=== PATIENT | female | born 1965 | race Caucasian/White ===

== ENCOUNTER → 2016-11-12 | Outpatient (CLI) | payer OTHER ==
[~2016-11-12] MED LIST: ACLI1AER3 INH; AMLO-114 PO; BENA40TA6 PO; CLC100 PO; CLON1TAB3 PO; CMBIN INH; CRS20 PO; DULA1INJ PO; DULO60CA44 PO; EZET10TA63 PO; FLUT0.15 NAE; FURO-85 PO; GABA1CAP5 PO; GABA800T PO; GLIP-199 PO; INSDGI SC; IPRA1AER2 INH; LINA1CAP PO; LTN/10 PO; METO25TA56 PO; MONT1TAB3 PO; MORP1TAB12 PO; MORP30TA23 PO; NVLGI/PEN SQ; OXYC-164 PO; OXYC1TAB3 PO; PANT40TA PO; POTA-335 PO; PROAIR HFA 108 INH; ROSU20TA PO; SITA100T3 PO; SYMIN160 INH; TRAZ100T29 PO; WARF3TAB PO; WARF3TAB6 PO; WARF6TAB PO; ZLF/100 PO; ZNT/300 PO
--- NOTE | 2016-11-12 10:11 | DIAGNOSTIC IMAGING REPORT ---
DOUBLE CONTRAST BARIUM ESOPHAGRAM CLINICAL HISTORY: Dysphagia. History of tracheostomy. COMPARISON STUDY: No priors. TECHNIQUE: A standard air contrast barium esophagram is performed. Multiple spot images of the esophagus are acquired both upright and prone. FINDINGS: The patient swallowed barium and the barium pill without difficulty. The mucosal pattern is normal. There is no evidence of intrinsic or extrinsic mass lesion. Trace silent aspiration was observed. The gastroesophageal junction distended normally. There is mild to moderate dysmotility in the mid to distal third of the esophagus. No gastroesophageal reflux could be elicited by having the patient perform the Valsalva maneuver. Fluoroscopy time: 1.3 minutes. Fluoroscopic images: 23 IMPRESSION: 1. Trace silent aspiration was observed during the examination. 2. Esophageal dysmotility. Electronically signed by: En Yoder M.D. 11/12/2016 10:09 AM Dictated Date/Time: 11/12/2016 10:01 AM
== END | disposition home or self-care (01) ==
LOC: C.RAD 08:53
PROVIDERS: ATTEND Family Medicine
DX: R13.10 Dysphagia, unspecified (principal)

== ENCOUNTER → 2016-11-26 | Outpatient (CLI) | payer OTHER ==
--- NOTE | 2016-11-26 12:12 | DIAGNOSTIC IMAGING REPORT ---
VIDEO SWALLOW HISTORY: R13.10 [id number] TECHNIQUE: Video fluoroscopic evaluation of swallowing was performed in the AP and lateral projections by the speech pathology staff. The patient is fed nectar-thick and thin liquid barium, a barium coated wafer, and barium pudding. FLUOROSCOPY TIME: Fluoroscopy time 1.9 minutes. A cine loop was submitted. COMPARISON STUDY: Barium swallow 11/12/2016. FINDINGS: There is normal hyoid excursion and epiglottic deflection. Multiple episodes of penetration. However, no aspiration identified during the examination. The penetration was improved with chin tuck maneuvers. IMPRESSION: 1. Multiple episodes of penetration without aspiration. This was improved by chin tuck maneuvers. 2. Please see the speech pathologist report for detailed findings and recommendations. Electronically signed by: Cesar Clement M.D. 11/26/2016 12:10 PM Dictated Date/Time: 11/26/2016 12:07 PM
--- NOTE | 2016-11-26 12:51 | SWALLOWING EVALUATION ---
HISTORY: This 51 year-old woman, from home, was referred for a VFSS at [facility] secondary to complaints of feeling that something is stuck in her throat as well as reporting coughing with meals epically with thins and mixed consistencies. Currently the patient's diet level is regular with thins. She completed Barium Swallow on 11/12/16 which indicated severe esophageal dysmotility as well as trace aspiration. PROCEDURE: The patient was seen in the Radiology Department of [facility] for the VFSS. Cursory examination of the oral cavity revealed no dentition and pt. reports that she rarely wears her upper dentures. Movement of the articulators was WNL. The patient was seated in a wheel chair and was viewed in both the Anterior-Posterior (A-P) and Lateral planes. Volitional phonation exercises completed in the A-P plane revealed bilateral vocal fold movement and vocal intensity within functional limits. In the lateral plane, the patient was given the following barium-infused boluses: 1 tsp thin barium with oral hold 1x, 1 tsp thin barium with oral hold and chin tuck 1x, self presented single cup swallow-thin barium 1x, self presented single cup swallow -thin liquid barium with chin tuck 1x, self presented serial cup swallow 1x. 1 tsp nectar thick barium with oral hold 1x, self presented single cup swallow- nectar thick barium 1x, self presented serial cup swallows 1x. 1 tsp barium pudding-self presented 1x. Cracker with barium paste 1x. Pt. was turned to be viewed in the A-P view for the esophgeal scan however no food was presented as previously presented food was remaining throughout the esophagus displaying significant dysmotitliy. RESULTS: Oral Phase: Pt. had no labial escape of any food or liquid items presented. Pt. demonstrated a cohesive bolus between tongue and palatal seal. Timely and efficient chewing and mashing was observed with all consistencies as well as brisk tongue motion and complete oral clearance. Initiation of pharyngeal swallow began with bolus head at posterior angle of hyoid excursion. Overall WFL for oral phase of swallow. *Did note small amount of premature spillage to the level of the valleculae inconsistently throughout the study. Pharyngeal Phase: Soft Palate Elevation was complete for all boluses. Laryngeal elevation was reduced demonstrating decreased movement of thyroid cartilage. Complete approximation of arytenoids to epiglottic base. Incomplete Anterior Hyoid excursion was observed. Complete epiglottic inversion was witnessed. Laryngeal Vestibular closure was incomplete and a thin column of barium noted in laryngeal vestibule. Tongue base retraction was noted with all consistencies and tongue base made effective contact with posterior pharyngeal wall throughout study. Mild pharyngeal residue was observed resulting in nearly complete pharyngeal clearance of all tested items. *Results of thin liquids and nectar thick liquids did not vary. *Pt. demonstrated mild penetration of thins and nectars with cup drinks. Not witnessed with sequential swallows however highly likely. Pt. was instructed to complete chin tuck with 2 second oral hold which resulted in increased airway protection and no penetration. No aspiration was observed during this study however highly likely to occur throughout the course of a meal if pt. does not follow safe swallow strategies, aspiration precautions, and GERD precautions. Esophageal Phase: Opening and closing of the UES was timely and efficient. CADDIE SUPERVISOR noted significant esophageal dysmotility. SUMMARY/RECOMMENDATIONS: Overall pt. presented with mild pharyngeal dysphagia and significant esophageal dysmotility. Recommendin. Regular "slippery" diet (no mixed consistencies) with thin liquids AND CHIN TUCK-NO STRAWS 2. Aspiration precautions 3. GERD precautions (upright for all meals +20 min after as well as no eating 20 min before laying down) 4. GI consult- Pt. has already completed Barium Swallow Radiologist IMPRESSION: 1. Multiple episodes of penetration without aspiration. This was improved by chin tuck maneuvers. 2. Please see the speech pathologist report for detailed findings and recommendations. All results and recommendations were discussed with the pt. and her daughter at length as well as written material provided. Thank you for referral of this patient. Please contact me at if any additional information is needed.
== END | disposition home or self-care (01) ==
LOC: C.RAD 11:11
PROVIDERS: ATTEND Family Medicine
DX: R13.13 Dysphagia, pharyngeal phase (principal); K22.4 Dyskinesia of esophagus

== ENCOUNTER 2016-12-03 18:01 | Emergency (ER) | payer OTHER ==
[~2016-12-03] VITALS: Ht 154.9 cm; Wt 91.0 kg
[~2016-12-03 18:01] MED LIST changes: -ACLI1AER3 INH; -BENA40TA6 PO; -DULA1INJ PO; -DULO60CA44 PO; -FLUT0.15 NAE; -GABA800T PO; -INSDGI SC; -LINA1CAP PO; -METO25TA56 PO; -MORP1TAB12 PO; -NVLGI/PEN SQ; -OXYC-164 PO; -PROAIR HFA 108 INH; -ROSU20TA PO; -TRAZ100T29 PO; -WARF3TAB PO; -WARF6TAB PO
[2016-12-03 18:10] VITALS: TEMP 36.9; Ht 154.9 cm; Wt 91.0 kg
[2016-12-03] MEDS ORDERED: SODIUM CHLORIDE 0.9% 1000ML 1,000 ML IV STA (19:54)
[2016-12-03] MEDS ORDERED: ONDANSETRON INJ 2 MG/ML 2 ML VIAL IV STA (19:54)
[2016-12-03] MEDS ORDERED: MoRPHine SULFATE 4 MG/ML 1 ML CARP\\VIAL IV STA (19:54)
[2016-12-03 20:06] LABS: BASO % 0.3 %; BASO ABS # 0.03 K/uL (0-0.2); COMPLETE YES; EOS % 1.1 %; HEMATOCRIT 47.4 % (37-47); IG% 0.1 %; LYMPH % 44.7 %; LYMPH ABS # 4.29 K/uL (1.2-3.4); MEAN CORPUSCULAR HEMOGLOBIN 29.6 pg (25-34); MEAN CORPUSCULAR HGB CONC 35.2 g/dl (32-36); MEAN PLATELET VOLUME 11.2 fL (7.4-10.4); MONO % 4.4 %; NEUT % 49.4 %; PLATELET COUNT 154 K/uL (130-400); RED BLOOD COUNT 5.64 M/uL (4.2-5.4)
[2016-12-03 20:28] LABS: ALT/SGPT 32 U/L (12-78); BLOOD UREA NITROGEN 14 mg/dl (7-18); BUN/CREATININE RATIO 18.7 (10-20); CALCIUM 8.6 mg/dl (8.5-10.1); CARBON DIOXIDE 23 mmol/L (21-32); CHLORIDE 107 mmol/L (98-107); CREATININE 0.75 mg/dl (0.60-1.20); GLUCOSE 153 mg/dl (70-99); POTASSIUM 3.9 mmol/L (3.5-5.1); SODIUM 140 mmol/L (136-145)
[2016-12-03 20:31] LABS: ALKALINE PHOSPHATASE 79 U/L (45-117); AST/SGOT 22 U/L (15-37)
[2016-12-03] MEDS ORDERED: OPTIRAY 320 IV PRN (20:45)
--- NOTE | 2016-12-03 21:02 | DIAGNOSTIC IMAGING REPORT ---
CT ABD/PELVIS IV CONTRAST ONLY CLINICAL HISTORY: Lower abdominal pain SUSPECTED DIVERTICULITIS COMPARISON STUDY: None. TECHNIQUE: Following the IV administration of 90 mL of Optiray-320, CT scan of the abdomen and pelvis was performed from the lung bases to the proximal femurs. Images are reviewed in the axial, sagittal, and coronal planes. IV contrast was administered without complication. CT DOSE: 1155.41 mGy.cm FINDINGS: Lower chest: There is mild interstitial prominence. There is subtle tree-in-bud opacities, likely postinflammatory. Liver: There is mild hepatic steatosis. The liver is mildly enlarged. Gallbladder: Unremarkable. Spleen: The spleen is mildly enlarged measuring 12 cm. No masses are visualized. Pancreas: Unremarkable. Adrenal glands: Unremarkable. Kidneys: There is symmetric renal cortical enhancement. The kidneys are normal in size without hydronephrosis. Bowel: There are no transition zones to indicate bowel obstruction. The appendix appears normal. There is no evidence of acute diverticulitis. Peritoneum: There is no free fluid. There is no free air. There are multiple fat-containing anterior abdominal wall hernias. Vasculature: The patient appears be status post aortoiliac grafting. There is no evidence of abdominal aortic aneurysm. Adenopathy: None. Pelvic viscera: The uterus appears surgically absent. Skeletal structures: No destructive osseous lesions are seen. IMPRESSION: 1. No evidence of bowel obstruction. No evidence of free air 2. Normal appendix 3. No evidence of acute diverticulitis 4. Hepatic steatosis. Mild hepatosplenomegaly 5. Multiple fat-containing ventral hernias Electronically signed by: Neal Quigley M.D. 12/03/2016 9:00 PM Dictated Date/Time: 12/03/2016 8:54 PM
[2016-12-03] MEDS ORDERED: DULO60CA44 PO (21:26)
[2016-12-03] MEDS ORDERED: ROSU20TA PO (21:26)
[2016-12-03] MEDS ORDERED: FLUT0.15 NAE (21:26)
[2016-12-03 21:28] VITALS: BP 108/39; PULSE 99; O2SAT 95
[2016-12-03] MEDS ORDERED: EZET10TA63 PO (21:39)
[2016-12-03] MEDS ORDERED: WARF3TAB PO (21:39)
[2016-12-03] MEDS ORDERED: METO25TA56 PO (21:39)
[2016-12-03] MEDS ORDERED: NVLGI/PEN SQ (21:39)
[2016-12-03] MEDS ORDERED: PROAIR HFA 108 INH (21:39)
[2016-12-03] MEDS ORDERED: WARF6TAB PO (21:39)
[2016-12-03] MEDS ORDERED: INSDGI SC (21:39)
[2016-12-03] MEDS ORDERED: DULA1INJ PO (21:39)
[2016-12-03] MEDS ORDERED: TRAZ100T29 PO (21:39)
[2016-12-03] MEDS ORDERED: LINA1CAP PO (21:39)
[2016-12-03] MEDS ORDERED: ACLI1AER3 INH (21:39)
--- NOTE | 2016-12-03 22:40 | EMERGENCY ROOM VISIT NOTE ---
History Report prepared by Janelle: Johanna Watson Under the Supervision of: Dr. Salvador Cat M.D. First contact with patient: 19:45 Chief Complaint: DIARRHEA Stated Complaint: PAIN GOING FROM ABD TO BACK,DIARRHEA Nursing Triage Summary: L upper abd pain that radiates around to her back for 3 wks, c/o diarrhea for 4 days History of Present Illness The patient is a 51 year old female who presents to the Emergency Room with complaints of persistent left sided abdominal pain that began 3 weeks ago. Her pain radiates to the left side of her back. She describes it as an ache. She also complains of diarrhea which began 3 days ago. She describes it as watery and loose. She has an episode of diarrhea every time she tries to eat something. Today, the patient called her PCP's office and was referred to the emergency room. Denies fevers, vomiting, blood in her stool, urinary symptoms, or other complaints. She does not have history of abdominal issues. Denies recent antibiotic use or recent foreign travel. Source of History: patient Onset: 3 weeks ago Position: abdomen (left side) Quality: ache Timing: other (persistent) Associated Symptoms: + diarrhea, No fevers, No urinary symptoms, No vomiting Review of Systems See HPI for pertinent positives & negatives. A total of 10 systems reviewed and were otherwise negative. Past Medical & Surgical Medical Problems: (1) Emphysema of lung (2) Hypertension Surgical Problems: (1) Hx of BKA Family History No pertinent family history stated. Social History Smoking Status: Former Smoker Alcohol Use: none Drug Use: none Marital Status: single Occupation Status: disabled Current/Historical Medications Scheduled Aclidinium [place] (Tudorza Pressair), 1 PUFF INH BID Amlodipine (Norvasc), 10 MG PO DAILY Benazepril Hcl (Benazepril), 40 MG PO DAILY Budesonide/Formoterol Fumarate (Symbicort 160/4.5 Inhaler ), 2 PUFFS INH BID Dulaglutide (Trulicity), 0.75 MG PO WK Duloxetine Hcl (Cymbalta), 60 MG PO DAILY Ezetimibe (Zetia), 10 MG PO DAILY Furosemide (Lasix), 20 MG PO 2XWK Gabapentin (Neurontin), 800 MG PO BID Insulin Aspart (Novolog Flexpen), SQ UD Insulin Glargine (Lantus), 40 SC AMPM Linaclotide (Linzess), 145 MG PO DAILY Metoprolol Tartrate (Lopressor) (Lopressor), 25 MG PO BID Montelukast Sodium (Singulair), 10 MG PO DAILY Morphine Sulfate (Ms Contin), 30 MG PO Q12 Pantoprazole (Protonix), 40 MG PO DAILY Ranitidine HCl (Ranitidine HCl), 300 MG PO HS Rosuvastatin Calcium (Crestor), 20 MG PO DAILY Trazodone Hcl (Trazodone), 100 MG PO HS Warfarin Sodium (Coumadin), 3 MG PO 6XWK Warfarin Sodium (Coumadin), 6 MG PO WK Scheduled PRN Clonazepam (Klonopin), 1.5 MG PO TID PRN for Anxiety Fluticasone Propionate (Nasal) (Flonase Allergy Relief), 1-2 SPRAYS EVELYNE HS PRN for Nasal Congestion Ipratropium-Albuterol (Combivent Respimat), 1 PUFFS INH Q6H PRN for SOB/Wheezing Oxycodone Ir (Roxicodone Ir), 10 MG PO every 6 hours PRN for SEVERE PAIN [Proair Hfa 108], 1-2 PUFFS INH Q4 PRN for SOB/Wheezing Allergies Coded Allergies: Bupropion (Verified Allergy, Intermediate, hives, 05/11/15) Adhesives (Verified Allergy, Mild, "all tapes except paper" -- skin irritation, 12/03/16) Penicillins (Verified Allergy, Unknown, UNKNOWN, 05/11/15) Physical Exam Vital Signs Date Time Temp Pulse Resp B/P Pulse Ox O2 Delivery O2 Flow Rate FiO2 12/03/16 21:28 99 18 108/39 95 Room Air 12/03/16 20:12 101 16 143/58 95 Room Air 12/03/16 18:10 36.9 101 18 148/78 93 Room Air Physical Exam Constitutional: Vital signs reviewed. Eyes: Pupils are equal round reactive to light. Conjunctiva are noninjected. ENT: Pharynx is clear without erythema or exudate. Mucous membranes are moist. Neck supple without meningeal signs. Respiratory: Clear to auscultation bilaterally. Breath sounds are equal bilaterally. Cardiovascular: Regular rate and rhythm. No rubs or gallops. GI: Soft, nondistended, left abdominal tenderness, no guarding. Bowel sounds are present. Musculoskeletal: Bilateral BKA. No CVA tenderness. Integumentary: No cyanosis. Neurological: The patient is awake and alert. No focal deficits. Psychiatric: Normal affect. Medical Decision & Procedures ER Provider Diagnostic Interpretation: CT results as stated below per my review and radiologist interpretation. CT ABD/PELVIS IV CONTRAST ONLY CLINICAL HISTORY: Lower abdominal pain SUSPECTED DIVERTICULITIS COMPARISON STUDY: None. TECHNIQUE: Following the IV administration of 90 mL of Optiray-320, CT scan of the abdomen and pelvis was performed from the lung bases to the proximal femurs. Images are reviewed in the axial, sagittal, and coronal planes. IV contrast was administered without complication. CT DOSE: 1155.41 mGy.cm FINDINGS: Lower chest: There is mild interstitial prominence. There is subtle tree-in-bud opacities, likely postinflammatory. Liver: There is mild hepatic steatosis. The liver is mildly enlarged. Gallbladder: Unremarkable. Spleen: The spleen is mildly enlarged measuring 12 cm. No masses are visualized. Pancreas: Unremarkable. Adrenal glands: Unremarkable. Kidneys: There is symmetric renal cortical enhancement. The kidneys are normal in size without hydronephrosis. Bowel: There are no transition zones to indicate bowel obstruction. The appendix appears normal. There is no evidence of acute diverticulitis. Peritoneum: There is no free fluid. There is no free air. There are multiple fat-containing anterior abdominal wall hernias. Vasculature: The patient appears be status post aortoiliac grafting. There is no evidence of abdominal aortic aneurysm. Adenopathy: None. Pelvic viscera: The uterus appears surgically absent. Skeletal structures: No destructive osseous lesions are seen. IMPRESSION: 1. No evidence of bowel obstruction. No evidence of free air 2. Normal appendix 3. No evidence of acute diverticulitis 4. Hepatic steatosis. Mild hepatosplenomegaly 5. Multiple fat-containing ventral hernias Electronically signed by: Neal Quigley M.D. 12/03/2016 9:00 PM Dictated Date/Time: 12/03/2016 8:54 PM Laboratory Results 12/03/16 19:55 Red Blood Count 5.64, Mean Corpuscular Volume 84.0, Mean Corpuscular Hemoglobin 29.6, Mean Corpuscular Hemoglobin Concent 35.2, Mean Platelet Volume 11.2, Neutrophils (%) (Auto) 49.4, Lymphocytes (%) (Auto) 44.7, Monocytes (%) (Auto) 4.4, Eosinophils (%) (Auto) 1.1, Basophils (%) (Auto) 0.3, Neutrophils # (Auto) 4.74, Lymphocytes # (Auto) 4.29, Monocytes # (Auto) 0.42, Eosinophils # (Auto) 0.11, Basophils # (Auto) 0.03 12/03/16 19:55 Test 12/03/16 19:55 White Blood Count 9.60 K/uL (4.8-10.8) Red Blood Count 5.64 M/uL (4.2-5.4) Hemoglobin 16.7 g/dL (12.0-16.0) Hematocrit 47.4 % (37-47) Mean Corpuscular Volume 84.0 fL (80-100) Mean Corpuscular Hemoglobin 29.6 pg (25-34) Mean Corpuscular Hemoglobin Concent 35.2 g/dl (32-36) Platelet Count 154 K/uL (130-400) Mean Platelet Volume 11.2 fL (7.4-10.4) Neutrophils (%) (Auto) 49.4 % Lymphocytes (%) (Auto) 44.7 % Monocytes (%) (Auto) 4.4 % Eosinophils (%) (Auto) 1.1 % Basophils (%) (Auto) 0.3 % Neutrophils # (Auto) 4.74 K/uL (1.4-6.5) Lymphocytes # (Auto) 4.29 K/uL (1.2-3.4) Monocytes # (Auto) 0.42 K/uL (0.11-0.59) Eosinophils # (Auto) 0.11 K/uL (0-0.5) Basophils # (Auto) 0.03 K/uL (0-0.2) RDW Standard Deviation 42.1 fL (36.4-46.3) RDW Coefficient of Variation 13.8 % (11.5-14.5) Immature Granulocyte % (Auto) 0.1 % Immature Granulocyte # (Auto) 0.01 K/uL (0.00-0.02) Anion Gap 10.0 mmol/L (3-11) Est Creatinine Clear Calc Drug Dose 92.2 ml/min Estimated GFR () 107.7 Estimated GFR (Non- 92.9 BUN/Creatinine Ratio 18.7 (10-20) Calcium Level 8.6 mg/dl (8.5-10.1) Total Bilirubin 0.3 mg/dl (0.2-1) Direct Bilirubin < 0.1 mg/dl (0-0.2) Aspartate Amino Transf (AST/SGOT) 22 U/L (15-37) Alanine Aminotransferase (ALT/SGPT) 32 U/L (12-78) Alkaline Phosphatase 79 U/L (45-117) Total Protein 7.9 gm/dl (6.4-8.2) Albumin 3.5 gm/dl (3.4-5.0) Lipase 125 U/L (73-393) Laboratory results as reviewed by me. Medications Administered Medications (Trade) Dose Ordered Sig/Casandra Route Start Time Stop Time Status Last Admin Dose Admin Sodium Chloride (Nss 1000ml) 1,000 ml @ 999 mls/hr Q1H1M STAT IV 12/03/16 19:54 12/03/16 20:54 DC 12/03/16 20:00 999 MLS/HR Ondansetron HCl (Zofran Inj) 4 mg NOW STAT IV 12/03/16 19:54 12/03/16 19:56 DC 12/03/16 20:04 4 MG Morphine Sulfate (MoRPHine SULFATE INJ) 4 mg NOW STAT IV 12/03/16 19:54 12/03/16 19:56 DC 12/03/16 20:05 4 MG ED Course 1947: The patient was evaluated in room A10. A complete history and physical exam was performed. 1953: Ordered Morphine Sulfate 4 mg IV, Zofran Inj 4 mg IV, NSS 1000 ml @ 999 mls/hr IV. 2116: I reassessed the patient and talked to her about test results. She said that she was feeling better. She will follow up with her doctor and GI. The patient will be discharged home. Medical Decision This is a 51-year-old female who presents with abdominal pain and diarrhea. Differential diagnosis includes diverticulitis, abscess, perforation, colitis, kidney stone, irritable bowel syndrome, enteritis. I did perform a limited focused review of portions of the patient's old chart on the electronic medical record. The patient has had no recent pertinent visits to this hospital. I did evaluate the patient as noted above. IV access was established. I did treat patient with normal saline IV. She was also given morphine and Zofran IV. I did order and review the patient's blood work as noted in the electronic medical record. Her white blood cell count is not elevated. I did order a CT of the abdomen and pelvis. I did review the images myself as well as the radiology report as described above. There is no evidence of acute findings on CT scanning. I did reassess the patient. She is feeling better. I did discuss the test results with her. At this time the cause of her abdominal pain is unclear and she will follow up with her doctor and GI doctor for further evaluation. The patient was discharged in good condition. Impression Primary Impression: Left sided abdominal pain Additional Impression: Diarrhea Scribe Attestation The scribe's documentation has been prepared under my direct and personally reviewed by me in its entirety. I confirm that the note above accurately reflects all work, treatment, procedures, and medical decision making performed by me. Departure Information Dispostion Home / Self-Care Referrals Justa Rosen DO (PCP) Patient Instructions ED Abd Pain Unkn Cause Fem, My [facility] Additional Instructions You have been examined and treated today on an emergency basis only. This is not a substitute for, or an effort to provide, complete comprehensive medical care. It is impossible to recognize and treat all injuries or illnesses in a single emergency department visit. It is therefore important that you follow up closely with your physician and GI doctor. Call as soon as possible for an appointment. Return for worsening symptoms or if you develop fever, vomiting, rectal bleeding or any other concerning symptoms. Problem Qualifiers Additional Impression: Diarrhea Diarrhea type: unspecified type Qualified Codes: R19.7 - Diarrhea, unspecified
[2017-01-17] MEDS ORDERED: MORP1TAB12 PO (11:54)
[2017-01-17] MEDS ORDERED: BENA40TA6 PO (11:54)
[2017-01-17] MEDS ORDERED: GABA800T PO (11:54)
[2017-01-17] MEDS ORDERED: OXYC-164 PO (11:54)
== END 2016-12-03 21:31 | disposition home or self-care (01) ==
LOC: C.EDB 18:02 → C.EDA 21:31
DX: R10.30 Lower abdominal pain, unspecified (principal); R19.7 Diarrhea, unspecified; K76.0 Fatty (change of) liver, not elsewhere classified; I10 Essential (primary) hypertension; Z87.891 Personal history of nicotine dependence; Z79.01 Long term (current) use of anticoagulants

== ENCOUNTER → 2017-01-22 | Day surgery (SDC) | payer OTHER ==
[2017-01-17 11:57] VITALS: Ht 154.9 cm; Wt 94.5 kg
[~2017-01-22] VITALS: Ht 154.9 cm; Wt 94.5 kg
[~2017-01-22] MED LIST changes: +ACLI1AER3 INH; +BENA40TA6 PO; -CLC100 PO; -CMBIN INH; -CRS20 PO; +DULA1INJ PO; +DULO60CA44 PO; +FLUT0.15 NAE; -GABA1CAP5 PO; +GABA800T PO; -GLIP-199 PO; +INSDGI SC; +INSULIN HUMAN REGULAR PER UNIT 6 UNITS in SYRINGE 5.94 ML IV ONE; +LIDOCAINE HCL 2% 2 ML VIAL (20MG/ML) ONE; +LINA1CAP PO; -LTN/10 PO; +METO25TA56 PO; +MIDAZOLAM HCL 1 MG/ML 2ML VIAL ONE; +MORP1TAB12 PO; -MORP30TA23 PO; +NVLGI/PEN SQ; +ONDANSETRON INJ 2 MG/ML 2 ML VIAL ONE; +OXYC-164 PO; -OXYC1TAB3 PO; -POTA-335 PO; +PROAIR HFA 108 INH; +PROPOFOL IV EMULSION 10 MG/ML 20 ML VIAL IV ONE; +ROSU20TA PO; -SITA100T3 PO; -SYMIN160 INH; +TRAZ100T29 PO; +WARF3TAB PO; -WARF3TAB6 PO; -ZLF/100 PO
--- NOTE | 2017-01-22 11:56 | Endo History and Physical ---
History & Physical Date of Service: Jan 22, 2017. 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 Past Surgical History Hx Cardiac Surgery: No Hx Internal Defibrillator: No Hx Pacemaker: No Hx Abdominal Surgery: Yes (PARTIAL HYSTER, X2) Hx of Implantable Prosthesis: No Hx Post-Op Nausea and Vomiting: No Hx Cancer Surgery: No Hx Thoracic Surgery: No Hx Orthopedic: Yes (BLT BKA S/P TRAUMA, RT WRIST SURGERY) Hx Urinary Tract Surgery: No Family History None Social History Smoking Status: Former Smoker Hx Substance Use: No Hx Alcohol Use: No Allergies Coded Allergies: Bupropion (Verified Allergy, Intermediate, hives, 01/17/17) Adhesives (Verified Allergy, Mild, "all tapes except paper" -- skin irritation, 01/17/17) Penicillins (Verified Allergy, Unknown, HIVES, 01/17/17) Current Medications Reported Home Medications Medications Dose Route/Sig Max Daily Dose Days Date Category Dose Instructions Oxycodone Hcl 10 Mg Tab 1 Tab PO QID 01/17/17 Reported Morphine Sulfate Er (Morphine Sulfate) 30 Mg Tab 1 Tab PO BID 01/17/17 Reported Neurontin (Gabapentin) 800 Mg Tab 800 Mg PO TID 01/17/17 Reported Lotensin (Benazepril Hcl) 40 Mg Tab 40 Mg PO QPM 01/17/17 Reported Zetia (Ezetimibe) 10 Mg Tab 10 Mg PO QPM 12/03/16 Reported Coumadin (Warfarin Sodium) 3 Mg Tab 3 Mg PO QPM 12/03/16 Reported Tudorza Pressair (Aclidinium [place]) 400 Mcg/Act Aer 1 Puff INH BID 12/03/16 Reported Trulicity (Dulaglutide) 0.75 Mg/0.5 Ml Inj 0.75 Mg PO WK 12/03/16 Reported Trazodone (Trazodone HCl) 100 Mg Tab 100 Mg PO HS 12/03/16 Reported [Proair Hfa 108] 1-2 Puffs INH Q4 PRN 12/03/16 Reported Novolog Flexpen (Insulin Aspart) 100 Units/Ml Inj SQ UD 12/03/16 Reported PER SLIDING SCALE Lopressor (Metoprolol Tartrate) 25 Mg Tab 25 Mg PO BID 12/03/16 Reported Linzess (Linaclotide) 145 Mcg Cap 145 Mg PO QPM 12/03/16 Reported TAKE > 30 minutes prior to meals. Lantus (Insulin Glargine) 100 Unit/Ml Inj 50 SC AMPM 12/03/16 Reported Flonase Allergy Relief (Fluticasone Propionate (Nasal)) 50 Mcg/Act Spr 1-2 Sprays EVELYNE HS PRN 12/03/16 Reported Cymbalta (Duloxetine Hcl) 60 Mg Cap 60 Mg PO QPM 12/03/16 Reported Crestor (Rosuvastatin Calcium) 20 Mg Tab 20 Mg PO QPM 12/03/16 Reported Lasix (Furosemide) 20 Mg Tab 20 Mg PO 2XWK 05/05/15 Reported TAKE ON SAT & WED Norvasc (Amlodipine Besylate) 10 Mg Tab 10 Mg PO QPM 05/05/15 Reported Ranitidine HCl 300 Mg Tab 300 Mg PO HS 05/05/15 Reported Protonix (Pantoprazole Sodium) 40 Mg Tab 40 Mg PO QPM 05/05/15 Reported Combivent Respimat (Ipratropium-Albuterol) 1 Aer Aer 1 Puffs INH Q6H PRN 05/05/15 Reported Klonopin (Clonazepam) 1 Mg Tab 1.5 Mg PO TID 05/05/15 Reported Singulair (Montelukast Sodium) 10 Mg Tab 10 Mg PO QPM 05/05/15 Reported Vital Signs Weight (Kilograms): 94.55 Height (Feet): 5 Height (Inches): 1 Date Time Temp Pulse Resp B/P Pulse Ox O2 Delivery O2 Flow Rate FiO2 01/22/17 11:31 37.4 89 20 148/67 93 Room Air Physical Exam General Appearance: WD/WN, no apparent distress Respiratory/Chest: Auscultation: breath sounds normal Cardiovascular: Heart Auscultation: RRR Abdomen: Bowel Sounds: normal Inspection & Palpation: soft, non-distended, no tenderness, guarding & rebound Assessment and Plan Assessment: 51 yo CF who presents for EGD secondary to dysphagia and abnormal barium swallow. Plan: Proceed with EGD.
--- NOTE | 2017-01-22 12:36 | GI REPORT ---
Procedure Date: 01/22/2017 12:18 PM Procedure: Upper GI endoscopy Indications: Dysphagia, Abnormal UGI series Medicines: Monitored Anesthesia Care Complications: No immediate complications. Estimated Blood Loss: Estimated blood loss: none. Procedure: Pre-Anesthesia Assessment: - Prior to the procedure, a History and Physical was performed, and patient medications and allergies were reviewed. The patient's tolerance of previous anesthesia was also reviewed. The risks and benefits of the procedure and the sedation options and risks were discussed with the patient. All questions were answered, and informed consent was obtained. Prior Anticoagulants: The patient has taken Coumadin (warfarin), last dose was 2 days prior to procedure. ASA Grade Assessment: III - A patient with severe systemic disease. After reviewing the risks and benefits, the patient was deemed in satisfactory condition to undergo the procedure. After obtaining informed consent, the endoscope was passed under direct vision. Throughout the procedure, the patient's blood pressure, pulse, and oxygen saturations were monitored continuously. The scope was introduced through the mouth, and advanced to the second part of duodenum. The upper GI endoscopy was accomplished without difficulty. The patient tolerated the procedure well. Findings: The esophagus was normal. A medium amount of food (residue) was found in the entire examined stomach. The examined duodenum was normal. Impression: - Normal esophagus. - A medium amount of food (residue) in the stomach. - Normal examined duodenum. - No specimens collected. Recommendation: - Resume previous diet. - Continue present medications. - Recommend patient control blood glucose levels more strictly, as fluctuations, both acute and chronic can result in decreased GI motility. -Recommend Gastric emptying study - Return to primary care physician as previously scheduled. Miguelangel Johnson, 01/22/2017 12:35:43 PM This report has been signed electronically. Note Initiated On: 01/22/2017 12:18 PM I attest to the content of the Intraoperative Record and orders documented therein, exceptions below
--- NOTE | 2017-01-22 13:03 | Discharge Instructions ---
Endoscopy Patient Instructions Date / Procedure(s) Performed Jan 22, 2017. EGD Allergy Information Coded Allergies: Bupropion (Verified Allergy, Intermediate, hives, 01/17/17) Adhesives (Verified Allergy, Mild, "all tapes except paper" -- skin irritation, 01/17/17) Penicillins (Verified Allergy, Unknown, HIVES, 01/17/17) Discharge Date / Findings Jan 22, 2017. Retained gastric contents Medication Instructions Stopped Medication(s): Coumadin OK to resume all medications today as prescribed Reported Home Medications Medications Dose Route/Sig Max Daily Dose Days Date Category Dose Instructions Oxycodone Hcl 10 Mg Tab 1 Tab PO QID 01/17/17 Reported Morphine Sulfate Er (Morphine Sulfate) 30 Mg Tab 1 Tab PO BID 01/17/17 Reported Neurontin (Gabapentin) 800 Mg Tab 800 Mg PO TID 01/17/17 Reported Lotensin (Benazepril Hcl) 40 Mg Tab 40 Mg PO QPM 01/17/17 Reported Zetia (Ezetimibe) 10 Mg Tab 10 Mg PO QPM 12/03/16 Reported Coumadin (Warfarin Sodium) 3 Mg Tab 3 Mg PO QPM 12/03/16 Reported Tudorza Pressair (Aclidinium [place]) 400 Mcg/Act Aer 1 Puff INH BID 12/03/16 Reported Trulicity (Dulaglutide) 0.75 Mg/0.5 Ml Inj 0.75 Mg PO WK 12/03/16 Reported Trazodone (Trazodone HCl) 100 Mg Tab 100 Mg PO HS 12/03/16 Reported [Proair Hfa 108] 1-2 Puffs INH Q4 PRN 12/03/16 Reported Novolog Flexpen (Insulin Aspart) 100 Units/Ml Inj SQ UD 12/03/16 Reported PER SLIDING SCALE Lopressor (Metoprolol Tartrate) 25 Mg Tab 25 Mg PO BID 12/03/16 Reported Linzess (Linaclotide) 145 Mcg Cap 145 Mg PO QPM 12/03/16 Reported TAKE > 30 minutes prior to meals. Lantus (Insulin Glargine) 100 Unit/Ml Inj 50 SC AMPM 12/03/16 Reported Flonase Allergy Relief (Fluticasone Propionate (Nasal)) 50 Mcg/Act Spr 1-2 Sprays EVELYNE HS PRN 12/03/16 Reported Cymbalta (Duloxetine Hcl) 60 Mg Cap 60 Mg PO QPM 12/03/16 Reported Crestor (Rosuvastatin Calcium) 20 Mg Tab 20 Mg PO QPM 12/03/16 Reported Lasix (Furosemide) 20 Mg Tab 20 Mg PO 2XWK 05/05/15 Reported TAKE ON SAT & WED Norvasc (Amlodipine Besylate) 10 Mg Tab 10 Mg PO QPM 05/05/15 Reported Ranitidine HCl 300 Mg Tab 300 Mg PO HS 05/05/15 Reported Protonix (Pantoprazole Sodium) 40 Mg Tab 40 Mg PO QPM 05/05/15 Reported Combivent Respimat (Ipratropium-Albuterol) 1 Aer Aer 1 Puffs INH Q6H PRN 05/05/15 Reported Klonopin (Clonazepam) 1 Mg Tab 1.5 Mg PO TID 05/05/15 Reported Singulair (Montelukast Sodium) 10 Mg Tab 10 Mg PO QPM 05/05/15 Reported Provider Instructions Activity Restrictions - No exercising or heavy lifting for 24 hours. - Do not drink alcohol the day of the procedure. - Do not drive a car or operate machinery until the day after the procedure. - Do not make any important decisions or sign important papers in 24 hours after the procedure. Following Day: - Return to full activity which may include returning to work/school. Diet Start your diet with liquids and light foods (jello, soup, juice, toast). Then eat your usual diet if not nauseated. Treatment For Common After Affects For mild abdominal pain, bloating, or excessive gas: - Rest - Eat lightly - Lie on right side Schedule Gastric emptying study for further evaluation. Follow-Up Information Follow-up with Justa Rosen as scheduled Anesthesia Information What You Should Know You have had a procedure that required some medicine to reduce anxiety and discomfort. This treatment is called moderate sedation. After receiving the treatment, you may be sleepy, but you will be able to breathe on your own. The effects of the treatment may last for several hours. Follow these instructions along with Activity/Diet recommendations noted above: * Do NOT do anything where dizziness or clumsiness would be dangerous. * Rest quietly at home today, then you can be up and about tomorrow. * Have a responsible person stay with you the rest of today. * You may have had an I.V. today. If so, you may take the dressing off later today. Recommendations Call your doctor if: * Trouble breathing * Continuous vomiting for more than 24 hours * Temperature above 101 degrees * Severe abdominal pain or bloating * Pain not relieved by pain medicine ordered * There is increased drainage or redness from any incision * A large amount of rectal bleeding greater than 2-3 tablespoons. (If you had a polyp/s removed or have hemorrhoids, a small amount of blood - from the rectum is to be expected.) * You have any unanswered questions or concerns. IN THE EVENT OF A SERIOUS EMERGENCY, GO TO THE NEAREST EMERGENCY ROOM Your discharge instructions were prepared by provider Miguelangel Johnson. Patient Instructions Signature Page Briana Barajas Patient (or Guardian) Signature/Date: I have read and understand the instructions given to me by my caregivers. Caregiver/RN/Doctor Signature/Date: The above-named patient and/or guardian has received patient instructions on this date. + Original Patient Signature Page (only) stays with chart. Please make copy for patient.
[2017-01-22 13:29] VITALS: BP 142/86; PULSE 90; O2SAT 95
--- NOTE | 2017-01-22 14:37 | Anesthesiology Progress Note ---
Anesthesia Post Op Note Date & Time Jan 22, 2017 at 14:36 Vital Signs Pain Intensity: 0 Vital Signs Past 12 Hours Date Time Temp Pulse Resp B/P Pulse Ox O2 Delivery O2 Flow Rate FiO2 01/22/17 13:29 90 20 142/86 95 Room Air 01/22/17 12:55 87 20 158/88 95 Room Air 01/22/17 12:37 90 20 120/59 95 Room Air 01/22/17 11:31 37.4 89 20 148/67 93 Room Air Notes Mental Status: alert / awake / arousable, participated in evaluation Pt Amnestic to Procedure: Yes Nausea / Vomiting: adequately controlled Pain: adequately controlled Airway Patency, RR, SpO2: stable & adequate BP & HR: stable & adequate Hydration State: stable & adequate Anesthetic Complications: no major complications apparent
== END | disposition home or self-care (01) ==
LOC: C.GI 10:54
PROVIDERS: ATTEND Internal Medicine
DX: R13.10 Dysphagia, unspecified (principal); K21.9 Gastro-esophageal reflux disease without esophagitis; R94.8 Abnormal results of function studies of other organs and systems; Z90.711 Acquired absence of uterus with remaining cervical stump; Z96.653 Presence of artificial knee joint, bilateral; Z87.891 Personal history of nicotine dependence; Z88.8 Allergy status to other drugs, medicaments and biological substances; Z91.048 Other nonmedicinal substance allergy status; Z88.0 Allergy status to penicillin; J44.9 Chronic obstructive pulmonary disease, unspecified; I10 Essential (primary) hypertension; E78.5 Hyperlipidemia, unspecified; R56.9 Unspecified convulsions; Z86.73 Personal history of transient ischemic attack (TIA), and cerebral infarction without residual deficits; E11.9 Type 2 diabetes mellitus without complications; E66.9 Obesity, unspecified; F41.9 Anxiety disorder, unspecified

== ENCOUNTER → 2017-02-20 | Outpatient (CLI) | payer OTHER ==
[~2017-02-20] MED LIST changes: -INSULIN HUMAN REGULAR PER UNIT 6 UNITS in SYRINGE 5.94 ML IV ONE; -LIDOCAINE HCL 2% 2 ML VIAL (20MG/ML) ONE; -MIDAZOLAM HCL 1 MG/ML 2ML VIAL ONE; -ONDANSETRON INJ 2 MG/ML 2 ML VIAL ONE; -PROPOFOL IV EMULSION 10 MG/ML 20 ML VIAL IV ONE
--- NOTE | 2017-02-20 13:01 | DIAGNOSTIC IMAGING REPORT ---
NUCLEAR GASTRIC EMPTYING STUDY HISTORY: Reflux with esophagitis. COMPARISON: Barium swallow 11/12/2016. TECHNIQUE: Following the oral administration of 1.1 mCi of technetium 99m sulfur colloid in egg sandwich and 8 ounces of water, static abdominal images are obtained anteriorly and posteriorly at 0 minutes, 1 hour, 2 hour, and 4 hour time intervals. Gastric emptying was calculated utilizing the geometric mean method. FINDINGS: There is approximately 84% activity remaining at the 1 hour time interval (normal is less than 90%), 70% remaining at the 2 hour time interval (normal is less than 60%), and 50% activity remaining at the 4 hour time interval (normal is less than 10%). IMPRESSION: Delayed gastric emptying as described above. Electronically signed by: Cesar Clement M.D. 02/20/2017 12:58 PM Dictated Date/Time: 02/20/2017 12:57 PM
== END | disposition home or self-care (01) ==
LOC: C.NUCL 08:16
PROVIDERS: ATTEND Registered Nurse
DX: K30 Functional dyspepsia (principal); E11.9 Type 2 diabetes mellitus without complications; K21.9 Gastro-esophageal reflux disease without esophagitis; K31.89 Other diseases of stomach and duodenum

== ENCOUNTER → 2017-08-13 | Outpatient (CLI) | payer OTHER | END | disposition home or self-care (01) | LOC: C.LABSPEC 16:26 | PROVIDERS: ATTEND Family Medicine | DX: R19.7 Diarrhea, unspecified (principal) ==

== ENCOUNTER → 2017-11-21 | Outpatient (CLI) | payer OTHER ==
[2017-11-21 12:26] LABS: BASO % 0.7 %; BASO ABS # 0.06 K/uL (0-0.2); EOS % 1.3 %; EOS ABS # 0.11 K/uL (0-0.5); HEMATOCRIT 51.9 % (37-47); HEMOGLOBIN 18.3 g/dL (12.0-16.0); IG# 0.02 K/uL (0.00-0.02); LYMPH % 44.3 %; LYMPH ABS # 3.71 K/uL (1.2-3.4); MEAN CELL VOLUME 84.9 fL (80-100); MEAN CORPUSCULAR HGB CONC 35.3 g/dl (32-36); MEAN PLATELET VOLUME 11.3 fL (7.4-10.4); MONO % 3.7 %; MONO ABS # 0.31 K/uL (0.11-0.59); NEUT % 49.8 %; NEUT ABS # 4.17 K/uL (1.4-6.5); PLATELET COUNT 132 K/uL (130-400); RED CELL DISTRIBUTION WIDTH CV 13.8 % (11.5-14.5); RED CELL DISTRIBUTION WIDTH SD 42.4 fL (36.4-46.3); WHITE BLOOD COUNT 8.38 K/uL (4.8-10.8)
[2017-11-21 12:42] LABS: HEMOGLOBIN A1C 10.5 % (4.5-5.6)
[2017-11-21 18:37] LABS: ALBUMIN 3.7 gm/dl (3.4-5.0); ALT/SGPT 39 U/L (12-78); AST/SGOT 28 U/L (15-37); BLOOD UREA NITROGEN 8 mg/dl (7-18); CALCIUM 8.8 mg/dl (8.5-10.1); CARBON DIOXIDE 24 mmol/L (21-32); CHOLESTEROL 317 mg/dl (0-200); CREATININE 0.76 mg/dl (0.60-1.20); GLUCOSE 282 mg/dl (70-99); SODIUM 132 mmol/L (136-145)
[2017-11-21 18:38] LABS: FOLLICLE STIMULAT HORMONE 29.51 IU/L; LUTEINIZING HORMONE 15.43 IU/L
[2017-11-21 18:48] LABS: ALKALINE PHOSPHATASE 95 U/L (45-117); LDL CHOLESTEROL CALCULATED 214 mg/dl; LIPASE 539 U/L (73-393); TOTAL PROTEIN 8.2 gm/dl (6.4-8.2)
== END | disposition home or self-care (01) ==
LOC: C.LABPBG 11:02
PROVIDERS: ATTEND Family Medicine
DX: R10.9 Unspecified abdominal pain (principal); R11.2 Nausea with vomiting, unspecified; R61 Generalized hyperhidrosis; E11.9 Type 2 diabetes mellitus without complications

== ENCOUNTER → 2017-12-24 | Outpatient (CLI) | payer OTHER ==
[2017-12-24 12:19] LABS: BASO % 0.2 %; BASO ABS # 0.03 K/uL (0-0.2); EOS % 0.5 %; EOS ABS # 0.06 K/uL (0-0.5); HEMATOCRIT 49.7 % (37-47); HEMOGLOBIN 17.7 g/dL (12.0-16.0); IG# 0.03 K/uL (0.00-0.02); LYMPH % 37.1 %; LYMPH ABS # 4.48 K/uL (1.2-3.4); MEAN CELL VOLUME 82.8 fL (80-100); MEAN CORPUSCULAR HEMOGLOBIN 29.5 pg (25-34); MEAN CORPUSCULAR HGB CONC 35.6 g/dl (32-36); MEAN PLATELET VOLUME 10.7 fL (7.4-10.4); MONO % 3.6 %; MONO ABS # 0.44 K/uL (0.11-0.59); NEUT % 58.4 %; NEUT ABS # 7.05 K/uL (1.4-6.5); PLATELET COUNT 158 K/uL (130-400); RED CELL DISTRIBUTION WIDTH SD 41.8 fL (36.4-46.3); WHITE BLOOD COUNT 12.09 K/uL (4.8-10.8)
[2017-12-24 17:52] LABS: ALBUMIN 3.8 gm/dl (3.4-5.0); ALT/SGPT 31 U/L (12-78); AST/SGOT 17 U/L (15-37); BLOOD UREA NITROGEN 11 mg/dl (7-18); CALCIUM 9.3 mg/dl (8.5-10.1); CARBON DIOXIDE 22 mmol/L (21-32); CREATININE 0.79 mg/dl (0.60-1.20); GLUCOSE 256 mg/dl (70-99); LIPASE 143 U/L (73-393); POTASSIUM 4.1 mmol/L (3.5-5.1); SODIUM 134 mmol/L (136-145)
[2017-12-24 17:54] LABS: ALKALINE PHOSPHATASE 83 U/L (45-117); TOTAL PROTEIN 8.3 gm/dl (6.4-8.2)
== END | disposition home or self-care (01) ==
LOC: C.LABPBG 11:01
PROVIDERS: ATTEND Family Medicine
DX: R10.9 Unspecified abdominal pain (principal); R11.2 Nausea with vomiting, unspecified

== ENCOUNTER 2018-02-15 15:34 | Emergency (ER) | payer OTHER ==
[~2018-02-15] VITALS: Ht 154.9 cm; Wt 95.3 kg
[2018-02-15 15:50] VITALS: TEMP 37.1; O2SAT 94; Ht 154.9 cm; Wt 95.3 kg
[2018-02-15 16:00] LABS: BASO % 0.2 %; BASO ABS # 0.02 K/uL (0-0.2); EOS % 0.8 %; EOS ABS # 0.08 K/uL (0-0.5); HEMATOCRIT 44.4 % (37-47); HEMOGLOBIN 16.1 g/dL (12.0-16.0); IG# 0.02 K/uL (0.00-0.02); LYMPH % 41.2 %; MEAN CELL VOLUME 84.3 fL (80-100); MEAN CORPUSCULAR HEMOGLOBIN 30.6 pg (25-34); MEAN CORPUSCULAR HGB CONC 36.3 g/dl (32-36); MEAN PLATELET VOLUME 11.1 fL (7.4-10.4); MONO % 4.3 %; MONO ABS # 0.45 K/uL (0.11-0.59); NEUT % 53.3 %; NEUT ABS # 5.56 K/uL (1.4-6.5); PLATELET COUNT 131 K/uL (130-400); RED CELL DISTRIBUTION WIDTH CV 14.6 % (11.5-14.5); RED CELL DISTRIBUTION WIDTH SD 44.7 fL (36.4-46.3); WHITE BLOOD COUNT 10.43 K/uL (4.8-10.8)
[2018-02-15 16:11] LABS: INR 3.3 (0.9-1.1); PTT PATIENT 40.8 SECONDS (21.0-31.0)
[2018-02-15] MEDS ORDERED: BUSP15TA70 PO (16:12)
[2018-02-15] MEDS ORDERED: WARF2TAB8 PO (16:12)
[2018-02-15] MEDS ORDERED: VNTHFA/IN INH (16:12)
[2018-02-15] MEDS ORDERED: TRAZ1TAB52 PO (16:12)
[2018-02-15] MEDS ORDERED: INSU1.2I SC (16:12)
[2018-02-15] MEDS ORDERED: METO50TA16 PO (16:12)
[2018-02-15] MEDS ORDERED: PREG1CAP28 PO (16:12)
[2018-02-15 16:22] LABS: CALCIUM 8.8 mg/dl (8.5-10.1); CREATININE 0.67 mg/dl (0.60-1.20); POTASSIUM 3.4 mmol/L (3.5-5.1)
[2018-02-15 17:14] VITALS: BP 142/68; PULSE 72; O2SAT 96
--- NOTE | 2018-02-15 17:36 | DIAGNOSTIC IMAGING REPORT ---
CHEST 2 VIEWS ROUTINE HISTORY: Short of breath. COMPARISON: Chest 08/23/2011. FINDINGS: The heart is mildly enlarged. Mild diffuse interstitial thickening. No focal lung consolidations. No pleural effusions. No pneumothorax. IMPRESSION: 1. No focal lung consolidations to suggest pneumonia. 2. Mild cardiomegaly, unchanged. 3. Mild diffuse interstitial thickening. This is likely chronic. Electronically signed by: Cesar Clement M.D. 02/15/2018 5:35 PM Dictated Date/Time: 02/15/2018 5:33 PM
--- NOTE | 2018-02-15 17:56 | EMERGENCY ROOM VISIT NOTE ---
History Report prepared by Janelle: Kade Montana Under the Supervision of: Dr. Salvador Cat M.D. First contact with patient: 15:35 Stated Complaint: BREATHING DIFFICULTY History of Present Illness The patient is a 52 year old female who presents to the Emergency Room with complaints of moderate, constant, shortness of breath beginning at 0200 last night. She reports that she has been experiencing cold like symptoms for the past several days which developed into nausea and wheezing last night. She denies any chest pain or vomiting. The patient states that she received a breathing treatment in the ambulance [employer] in the ED which improved her symptoms.The patient reports that she has a history of COPD. She notes that she currently smoke 1/2 pack of cigarettes a day. The patient states that she is currently not on oxygen at home. She also notes that she takes Lasix but is not sure if she is ever been diagnosed with heart failure. 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 She also reports a history of tracheostomy Source of History: patient Onset: 0200 last night Position: other (Lungs) Symptom Intensity: moderate Quality: other (Trouble breathing) Timing: constant Modifying Factors (Relieving): other (Nebulizer) Associated Symptoms: + cough, + nausea, No chest pain, No vomiting Note: Associated Symptoms: Wheezing. Review of Systems See HPI for pertinent positives & negatives. A total of 10 systems reviewed and were otherwise negative. Past Medical & Surgical Medical Problems: (1) Emphysema of lung (2) Hypertension Surgical Problems: (1) Hx of BKA Family History Patient reports no known family medical history. Social History Smoking Status: Former Smoker Alcohol Use: none Drug Use: none Marital Status: single Occupation Status: disabled Current/Historical Medications Scheduled Amlodipine (Norvasc), 10 MG PO QPM Benazepril Hcl (Lotensin), 40 MG PO QPM Buspirone Hcl (Buspar), 15 MG PO TID Duloxetine Hcl (Cymbalta), 60 MG PO BID Ezetimibe (Zetia), 10 MG PO QPM Furosemide (Lasix), 20 MG PO NEEDED Gabapentin (Neurontin), 800 MG PO TID Insulin Aspart (Novolog Flexpen), SQ UD Insulin Glargine (Toujeo Solostar), 165 UNITS SC HS Linaclotide (Linzess), 145 MG PO QPM Metoprolol Tartrate (Lopressor) (Lopressor), 50 MG PO BID Montelukast Sodium (Singulair), 10 MG PO QPM Morphine Sulfate (Morphine Sulfate Er), 1 TAB PO BID Oxycodone Hcl (Oxycodone Hcl), 1 TAB PO QID Pantoprazole (Protonix), 40 MG PO QPM Pregabalin (Lyrica), 75 MG PO TID Ranitidine HCl (Ranitidine HCl), 300 MG PO HS Rosuvastatin Calcium (Crestor), 20 MG PO QPM Trazodone Hcl (Desyrel), 150-300 MG PO HS Warfarin Sod (Jantoven), 2 MG PO DAILY Scheduled PRN Albuterol Hfa (Ventolin Hfa), 2-4 PUFFS INH Q6H PRN for Shortness of Breath Fluticasone Propionate (Nasal) (Flonase Allergy Relief), 1-2 SPRAYS EVELYNE HS PRN for Nasal Congestion Ipratropium-Albuterol (Combivent Respimat), 1 PUFFS INH Q6H PRN for SOB/Wheezing Allergies Coded Allergies: Bupropion (Verified Allergy, Intermediate, hives, 01/17/17) Adhesives (Verified Allergy, Mild, "all tapes except paper" -- skin irritation, 01/17/17) Penicillins (Verified Allergy, Unknown, HIVES, 01/17/17) Physical Exam Vital Signs Date Time Temp Pulse Resp B/P (MAP) Pulse Ox O2 Delivery O2 Flow Rate FiO2 02/15/18 17:14 72 20 142/68 96 Room Air 02/15/18 15:50 94 Room Air 02/15/18 15:50 37.1 81 18 162/125 94 Room Air 02/15/18 15:50 94 Room Air 02/15/18 15:39 83 Physical Exam Constitutional: Vital signs reviewed. Eyes: Pupils are equal round reactive to light. Conjunctiva are noninjected. ENT: Pharynx is clear without erythema or exudate. Mucous membranes are moist. Neck supple without meningeal signs. Respiratory: Scattered wheezing bilaterally. Breath sounds are equal bilaterally. Cardiovascular: Regular rate and rhythm. No rubs or gallops. GI: Soft, nondistended and nontender. Bowel sounds are present. Musculoskeletal: Bilateral BKA. Integumentary: No cyanosis. Neurological: The patient is awake and alert. No focal deficits. Psychiatric: Normal affect. Medical Decision & Procedures ER Provider Diagnostic Interpretation: Radiology results as stated below per my review and the radiologist's interpretation: [~ rep ct add3]] CHEST 2 VIEWS ROUTINE HISTORY: Short of breath. COMPARISON: Chest 08/23/2011. FINDINGS: The heart is mildly enlarged. Mild diffuse interstitial thickening. No focal lung consolidations. No pleural effusions. No pneumothorax. IMPRESSION: 1. No focal lung consolidations to suggest pneumonia. 2. Mild cardiomegaly, unchanged. 3. Mild diffuse interstitial thickening. This is likely chronic. Electronically signed by: Cesar Clement M.D. 02/15/2018 5:35 PM Dictated Date/Time: 02/15/2018 5:33 PM Laboratory Results 02/15/18 15:46 Red Blood Count 5.27, Mean Corpuscular Volume 84.3, Mean Corpuscular Hemoglobin 30.6, Mean Corpuscular Hemoglobin Concent 36.3, Mean Platelet Volume 11.1, Neutrophils (%) (Auto) 53.3, Lymphocytes (%) (Auto) 41.2, Monocytes (%) (Auto) 4.3, Eosinophils (%) (Auto) 0.8, Basophils (%) (Auto) 0.2, Neutrophils # (Auto) 5.56, Lymphocytes # (Auto) 4.30, Monocytes # (Auto) 0.45, Eosinophils # (Auto) 0.08, Basophils # (Auto) 0.02 02/15/18 15:46 Test 02/15/18 15:46 02/15/18 15:52 White Blood Count 10.43 K/uL (4.8-10.8) Red Blood Count 5.27 M/uL (4.2-5.4) Hemoglobin 16.1 g/dL (12.0-16.0) Hematocrit 44.4 % (37-47) Mean Corpuscular Volume 84.3 fL (80-100) Mean Corpuscular Hemoglobin 30.6 pg (25-34) Mean Corpuscular Hemoglobin Concent 36.3 g/dl (32-36) Platelet Count 131 K/uL (130-400) Mean Platelet Volume 11.1 fL (7.4-10.4) Neutrophils (%) (Auto) 53.3 % Lymphocytes (%) (Auto) 41.2 % Monocytes (%) (Auto) 4.3 % Eosinophils (%) (Auto) 0.8 % Basophils (%) (Auto) 0.2 % Neutrophils # (Auto) 5.56 K/uL (1.4-6.5) Lymphocytes # (Auto) 4.30 K/uL (1.2-3.4) Monocytes # (Auto) 0.45 K/uL (0.11-0.59) Eosinophils # (Auto) 0.08 K/uL (0-0.5) Basophils # (Auto) 0.02 K/uL (0-0.2) RDW Standard Deviation 44.7 fL (36.4-46.3) RDW Coefficient of Variation 14.6 % (11.5-14.5) Immature Granulocyte % (Auto) 0.2 % Immature Granulocyte # (Auto) 0.02 K/uL (0.00-0.02) Prothrombin Time 33.6 SECONDS (9.0-12.0) Prothromb Time International Ratio 3.3 (0.9-1.1) Activated Partial Thromboplast Time 40.8 SECONDS (21.0-31.0) Partial Thromboplastin Ratio 1.6 Anion Gap 9.0 mmol/L (3-11) Est Creatinine Clear Calc Drug Dose 104.7 ml/min Estimated GFR () 118.0 Estimated GFR (Non- 101.8 BUN/Creatinine Ratio 14.1 (10-20) Calcium Level 8.8 mg/dl (8.5-10.1) Pro-B-Type Natriuretic Peptide 54 pg/ml (0-900) Bedside Troponin I < 0.030 ng/ml (0-0.045) Laboratory results as reviewed by me. ECG Per My Interpretation Indication: SOB/dyspnea Rate (beats per minute): 73 Rhythm: normal sinus Findings: other (no ST elevations, no PVCs.) ED Course 1536: The patient was evaluated in room C09. A complete history and physical exam was performed. 1630: I re-examined the patient. Minimal wheezing with good air entry bilaterally. I discussed test results with the patient. 1724: I reevaluated the patient. We discussed test results. She will try to find her nebulizer at home or get a new one. She will also attempt to stop smoking. Upon reevaluation, the patient appeared to have improvement of her symptoms. I discussed tatyana's findings with her. She verbalized agreement of the treatment plan. She was discharged home. Medical Decision This is a 52-year-old female presents with shortness of breath. Differential diagnosis includes COPD exacerbation, CHF, pulmonary edema, pneumonia, bronchitis. I did perform a limited focused review of portions of the patient' s old chart on the electronic medical record. The patient has had no recent pertinent visits to this hospital. I did evaluate the patient as noted above. The patient is presenting with shortness of breath since last night. She has had cold-like symptoms for the past several days. She did receive a DuoNeb prior to arrival and states she feels better. She does have very minimal wheezing on examination with good air entry bilaterally. The patient was placed on a continuous groundwater monitoring technician. I did order and personally review the patient's 12-lead EKG and chest x-ray as described above. Her chest x-ray does not demonstrate any signs of pneumonia. I did order and review the patient's blood work as noted in the electronic medical record. Troponin and BNP are negative. Her white blood cell count is not elevated. She does have some mild hyperglycemia. She is diabetic. I did reassess the patient. She has minimal to no wheezing with good air entry bilaterally. I did explain to her that I did not wish to treat her with prednisone as this would spike her blood sugar. Given she is not wheezing at this time I did feel symptomatic treatment with albuterol would be sufficient. She stated that she lost her nebulizer and so she will try to find it or get a new one from her doctor. She does have an albuterol MDI. In the absence of fever infiltrate I did not feel antibiotics are indicated at this time. I did discuss smoking cessation with her briefly. She stated that she has tried everything and has been unsuccessful but she will try to cut down smoking. The patient was discharged in good condition. Medication Reconcilliation Current Medication List: was personally reviewed by me Blood Pressure Screening Patient's blood pressure: Elevated blood pressure Blood pressure disposition: Referred to PCP The patient is hypertensive. Impression Primary Impression: COPD exacerbation Additional Impressions: Bronchitis Hyperglycemia Scribe Attestation The scribe's documentation has been prepared under my direct and personally reviewed by me in its entirety. I confirm that the note above accurately reflects all work, treatment, procedures, and medical decision making performed by me. Departure Information Dispostion Home / Self-Care Referrals Justa Rosen DO (PCP) Forms HOME CARE DOCUMENTATION FORM, IMPORTANT VISIT INFORMATION, WORK / SCHOOL INSTRUCTIONS Patient Instructions [facility], [facility] Additional Instructions You have been examined and treated today on an emergency basis only. This is not a substitute for, or an effort to provide, complete comprehensive medical care. It is impossible to recognize and treat all injuries or illnesses in a single emergency department visit. It is therefore important that you follow up closely with your physician. Call as soon as possible for an appointment. Return for worsening symptoms or if you develop fever, vomiting, chest pain or any other concerning symptoms. Problem Qualifiers
== END 2018-02-15 17:35 | disposition home or self-care (01) ==
LOC: EDBD 15:34 → C.EDC 15:35
DX: J44.0 Chronic obstructive pulmonary disease with (acute) lower respiratory infection (principal); E11.65 Type 2 diabetes mellitus with hyperglycemia; Z79.4 Long term (current) use of insulin; I10 Essential (primary) hypertension; F17.210 Nicotine dependence, cigarettes, uncomplicated; Z79.01 Long term (current) use of anticoagulants; Z89.512 Acquired absence of left leg below knee; Z89.511 Acquired absence of right leg below knee; Z88.0 Allergy status to penicillin; Z88.8 Allergy status to other drugs, medicaments and biological substances; Z91.048 Other nonmedicinal substance allergy status

== ENCOUNTER 2019-12-30 14:37 | Inpatient (IN) ==
[2019-12-30] MEDS ORDERED: ONDANSETRON INJ 2 MG/ML 2 ML VIAL IV PRN (20:07)
[2019-12-30] MEDS ORDERED: PHARMACY GLYCEMIC MGMT CONSULT PRN (20:39)
[2019-12-30] MEDS ORDERED: CARBOHYDRATES FOR HYPOGLYCEMIA PO PRN (21:00)
[2019-12-30] MEDS ORDERED: GLUCOSE 40% GEL 15 GM TUBE PO PRN (21:00)
[2019-12-30] MEDS ORDERED: INSULIN GLARGINE 100 UNIT/ML VIAL SC SCH (21:00)
[2019-12-30] MEDS ORDERED: GLUCOSE 10 TABS/TUBE PO PRN (21:00)
[2019-12-30] MEDS ORDERED: DEXTROSE 50% 50 ML SYRINGE IV PRN (21:00)
[2019-12-30] MEDS ORDERED: GLUCAGON FOR INJ 1 MG VIAL IM PRN (21:00)
[2019-12-30] MEDS: POLYETHYLENE (MIRALAX) 17 GM PACK PO SCH ×2 (21:40→21:46)
[2019-12-30] MEDS: INSULIN ASPART 100 UNITS/ML 3 ML PEN SC SCH (21:42)
--- NOTE | 2019-12-30 22:18 | History & Physical Report ---
Date of Service December 30, 2019 Assessment & Plan (1) Acute hypoxemic respiratory failure: Patient is a 54-year-old female with a past medical history of COPD, hyperlipidemia, ventral hernia, bilateral BKA using prosthesis, HTN, chronic pain syndrome, son aspiration, urinary incontinence, hypothyroidism, GERD, factor V Leiden, poorly controlled diabetes type 2, depression, asthma, aortic valve stenosis, allergic rhinitis, current smoker, chronically anticoagulated on Coumadin for history of significant peripheral vascular disease and blood clots, who presents as a transfer for [facility] for evaluation management of acute hypoxic respiratory failure secondary to COPD exacerbation in the setting of pneumonia out of concern the patient may need bronchoscopy or intubation. #Acute hypoxemic respiratory failure in the setting of COPD exacerbation secondary to pneumonia Patient with evidence of pneumonia on chest x-ray diagnosed at [facility], longstanding history of poorly controlled COPD, presenting with constitutional symptoms consistent with bacterial pneumonia. She has increased oxygen requirements 5 L/min saturating 92%. Patient is requesting BiPAP for assistance with sleep during the evening. She has a history of sick contacts with her grandson having a cold recently. We will continue antibiotics as started a [facility] and defer to day team to narrow pending clinical improvement. -Vancomycin -Cefepime -Azithromycin -DuoNebs every 6 hours while awake -Budesonide twice daily -Continue Solu-Medrol 60 mg IV daily -BiPAP PRN -Tylenol/Motrin as needed -dxm/guaifenesin -Michelle daily -Daily CBC -Daily BMP -Consider pulmonology consult -Chest PT/flutter valve/incentive spirometry -Continue daily inhalers #Diabetes type 2 poorly controlled Patient with history of poorly controlled type 2 diabetes most recent A1c was 12.5, blood sugars have been reasonable but since presentation. Given her need for prednisone therapy will place glycemic consult for assistance in sugar management. -Glycemic consult placed -We will need an excellent home regimen -Consult life skills educator #Subtherapeutic INR Patient with a subtherapeutic INR at [facility] has been on Lovenox Coumadin bridge will continue that here. Based on their records will increase Coumadin to 4 mg daily -Continue Lovenox bridge -Coumadin 4 mg daily -Daily PT/INR -Given history of subtherapeutic INR, and decreased oxygen saturation, consider possibility of PE -d-dimer to rule out #Peripheral arterial disease Patient with severe peripheral arterial disease resulting in bilateral BKA. She is chronically anticoagulated for this. -Continue home regimen #Hypertension -Continue amlodipine 10 mg -Continue Benzapril 40 mg -Continue furosemide 20 mg -Continue metoprolol 100 mg twice daily #CAD -Continue rosuvastatin #Urinary incontinence -Continue oxybutynin #Asthma -Continue Singulair -Continue inhalers #IBS -Continue linaclotide #GERD -Continue pantoprazole #Depression/anxiety -Continue doxepin 50 mg at bedtime -Continue duloxetine 60 mg twice daily FENa: Heart healthy diabetic II diet Code Status: Full code DVT PPX: Lovenox bridge to Coumadin PT/OT: Ordered Dispo: Telemetry Jeff Shaffer MD PGY 2, FCM This chart was completed utilizing [employer] voice recognition software. Grammatical errors, random word insertions, pronoun errors, and in complete sentences are an occasional consequence of the system. Any questions or concerns about the content, text, or information contained within the body of this dictation should be addressed directly to the physician for clarification. (2) COPD exacerbation: (3) Pneumonia: (4) Ventral hernia: (5) Pain syndrome, chronic: (6) Silent aspiration: (7) Urinary incontinence: (8) Hypothyroidism: (9) Hyperlipidemia: (10) Factor V Leiden mutation: (11) Diabetes mellitus type 2, uncontrolled: (12) Depression: (13) Aortic valve stenosis, mild: (14) Acquired absence of lower extremity below knee: (15) Anticoagulated on Coumadin: History of Present Illness Patient is a 54-year-old female with a past medical history of COPD, hyperlipidemia, ventral hernia, bilateral BKA using prosthesis, HTN, chronic pain syndrome, son aspiration, urinary incontinence, hypothyroidism, GERD, factor V Leiden, poorly controlled diabetes type 2, depression, asthma, aortic valve stenosis, allergic rhinitis, current smoker, chronically anticoagulated on Coumadin for history of significant peripheral vascular disease and blood clots, who presents as a transfer for [facility] for evaluation management of acute hypoxic respiratory failure secondary to COPD exacerbation in the setting of pneumonia out of concern the patient may need bronchoscopy or intubation. Patient reports being short of breath for the last few days, she has been taking care of her sick grandson who has a "cold ". It became significantly worse on February 25 causing her to press her VRI button. EMS arrived to the house and she had a temperature of 101 and was transferred by ambulance to [facility] with an oxygen saturation of 88 on room air. In the emergency department they gave her nebulizers, and steroids. Pertinent labs demonstrated a negative BNP, white count 5.8 ABG 7.42/30 3 on 2 L nasal cannula, glucose of 319, lactic acid of 0.7- troponin negative for flu a and B, A1c of 12.5, pro-Yan of 0.19 INR was subtherapeutic at 1.39 urinalysis was normal. She was admitted to the hospital for further evaluation and management of her COPD exacerbation and pneumonia. She was started on DuoNeb's, vancomycin, cefepime, Zithromax, Robitussin. The patient was monitored overnight without significant improvement in her symptoms, this morning she required BiPAP to assist with breathing. The decision was made to transfer her to [facility] out of concern that she may need bronchoscopy or intubation. Upon arrival to [facility] the patient was in no acute distress, lying in bed with 5 L of oxygen. Patient endorsed shortness of breath, dyspnea, difficulty breathing, subjective fever, chills, diarrhea patient denied pain, chest pressure sensorimotor changes, vision changes, nausea, vomiting, constipation, abdominal pain, pain in her bones muscles and joints, anxiety, depression. No acute changes in patient's status or symptoms on arrival. Patient is requesting BiPAP at night to assist with her sleeping. I inquired about the patient's smoking status she stated she is not interested in stopping is an every day smoker, denies drinking or drugs. All questions answered, no acute concerns. Primary Care Provider: Justa Rosen DO Allergies Allergy/AdvReac Type Severity Reaction Status Date / Time bupropion Allergy Intermediate hives Verified 08/10/19 11:05 adhesive Allergy Mild "all tapes Verified 08/10/19 11:05 except paper" -- skin irritation Penicillins AdvReac Unknown HIVES Verified 08/10/19 11:05 Home Medications Home Medications Medication Instructions Recorded Confirmed Type blood sugar diagnostic #10 ea 04/08/19 08/10/19 History lancets #50 ea 04/08/19 08/10/19 History montelukast 10 mg tablet 10 mg PO DAILY #90 tab 04/09/19 08/10/19 Rx azelastine 137 mcg (0.1 %) nasal 2 sprays INTRANASAL BID #1 ml 04/20/19 08/10/19 History spray aerosol budesonide-formoterol HFA 160 2 puffs INHALATION BID #1 gm 04/20/19 08/10/19 Hi story mcg-4.5 mcg/actuation aerosol inhaler clindamycin phosphate 1 % topical 1 appln TOPICAL DAILY PRN #1 gm 04/20/19 08/10/19 History gel duloxetine 60 mg capsule,delayed 60 mg PO BID #60 cap 04/20/19 08/10/19 History release furosemide 20 mg tablet 20 mg PO .COMPLEX tab 04/20/19 08/10/19 History hydroxyzine HCl 25 mg tablet 25 - 50 mg PO Q6H PRN #30 tab 04/20/19 08/10/19 History insulin aspart U-100 100 unit/mL 100 units SUBCUT .COMPLEX ml 04/20/19 History (3 mL) subcutaneous pen ipratropium 0.5 mg-albuterol 3 mg 3 ml INHALATION Q6H PRN #1 ml 04/20/19 08/10/19 History (2.5 mg base)/3 mL nebulization soln linaclotide 145 mcg capsule 145 mcg PO .COMPLEX cap 04/20/19 08/10/19 History promethazine 25 mg tablet 25 mg PO Q4H PRN #30 tab 04/20/19 08/10/19 History rosuvastatin 20 mg tablet 20 mg PO DAILY #90 tab 04/20/19 08/10/19 History warfarin 2 mg tablet 2 mg PO .COMPLEX tab 04/20/19 08/10/19 History warfarin 4 mg tablet 4 mg PO .COMPLEX tab 04/20/19 08/10/19 History insulin glargine U-300 conc 300 200 units SUBCUT DAILY #24 ml 04/21/19 08/10/19 Rx unit/mL (3 mL) subcutaneous pen benazepril 40 mg tablet 40 mg PO DAILY #90 tab 06/15/19 08/10/19 Rx pen needle, diabetic 31 gauge x #30 ea 07/17/19 08/10/19 History 3/16" famotidine 40 mg tablet 40 mg PO HS #30 tab 10/07/19 10/07/19 Rx oxybutynin chloride 5 mg 5 mg PO BID #60 tab 08/10/19 08/10/19 Rx tablet,extended release 24 hr metoprolol tartrate 100 mg tablet 100 mg PO BID #60 tab 10/05/19 Rx pantoprazole 40 mg tablet,delayed 40 mg PO BID #180 tab 11/09/19 Rx release amlodipine 10 mg tablet 10 mg PO DAILY #90 tab 11/11/19 Rx warfarin 3 mg tablet 3 mg PO .COMPLEX #90 tab 11/12/19 Rx doxepin 50 mg capsule 50 mg PO HS #30 cap 12/10/19 Rx gabapentin 600 mg tablet 600 mg PO TID #90 tab 12/10/19 Rx albuterol sulfate 90 mcg/actuation 1 - 2 puffs INHALATION Q4H PRN #1 12/21/19 Rx aerosol inhaler gm Past Med/Surg History Medical History Acquired absence of lower extremity below knee s/p b/l BKA IN 2010 SECONDARY TO GANGR[facility] FROM ACUTE AORTIC ILIAC THROMBUS AND B/l THROMBUS OF TIBIAL ARTERY Allergic rhinitis Anticoagulated on Coumadin Anxiety Aortic valve stenosis, mild Asthma Constipation COPD (chronic obstructive pulmonary disease) Depression Diabetes mellitus type 2, uncontrolled Esophageal dysmotility Factor V Leiden mutation Gastroparesis GERD without esophagitis Hyperlipidemia Hypertension Hypothyroidism Pain syndrome, chronic Phantom limb syndrome with pain Pulmonary emphysema Silent aspiration Urinary incontinence Uses prosthesis Ventral hernia Surgical History History of abdominal surgery (2010) ON ABDOMINAL AORTA D/T BLOOD CLOT History of amputation below knee (2010) B/l: BKA History of surgery on wrist RIGHT WRIST History of total abdominal hysterectomy (2010) WITH REMOVAL OF RIGHT OVARY 2010, D/T DUB History of tracheostomy (07/2011) H/O RESPIRATORY FAILURE DURING HOSPITALIZATION IN JUL 2011 S/P section x 2 Family History Mother , d/t pancreatic CA age 50 Diabetes Pancreatic cancer Anxiety Hypertension Father Myocardial infarction, Onset Age: 62 Anxiety Hypertension Alcohol abuse History of emphysema Sister Bipolar disorder Anxiety Hypertension Stroke Aunt Breast cancer Irritable bowel syndrome History of irritable bowel syndrome Denies family history of Colon cancer Ovarian cancer Prostate cancer Crohn's disease Social History Preferred Language: Hebrew Communication Ability: Effective Visual Impairment: No Limitations Hearing Ability: Normal Machine Woodworking Sander Required: No Beliefs That Will Affect Care: None marital status: Single marital status details: 2 CHILDREN Current Living Situation: Family Current Living Situation Comment: WITH SON and grandson current occupational status: disabled Other Information That Helps Us Care for You: No Feels Safe at Home: Yes Safety Concerns: Feels Safe At This Time Smoking Status: Former smoker Tobacco Type: cigarettes ; packs per day: 0.5 ; Cigarettes Per Day: 20 ; Smoking End Date: 12/26/2019 ; Second Hand Exposure: Yes ; Hx Alcohol Use: No Hx Substance Use: No Dental Care, Regularly: No Physical Activity Frequency: Daily Seatbelt Use: never (d/t abd incision) Review of Systems Review of Systems: All systems reviewed & are unremarkable except as noted in HPI & below Physical Exam Physical Exam: General: Obese female lying in bed in no acute distress with nasal cannula in place HEENT: Normocephalic atraumatic Neck: To visual inspection, trachea midline, I did not appreciate significant JVD Cardiac: Regular rate and rhythm, systolic ejection murmur, did not appreciate any rubs or gallops, normal S1, normal S2, slightly edematous Respiratory: Exam limited by body habitus, diminished breath sounds bilaterally, with wheezes, and rhonchi heard throughout all lung chao, symmetrical chest expansion, no increased work of breathing GI: Bowel sounds present, soft, nontender, nondistended Neuro: Alert and oriented x4 Psych: Calm, cooperative Results & Data Vital Signs (Past 12 Hours) Vital Signs Temp Pulse Resp BP Pulse Ox 12/30/19 18:45 36.9 C 93 H 22 159/72 H 92 Laboratory Results 12/30/19 Range/Units 19:56 POC Glucose 155 H (70-99) mg/dl Medications Administered Current Inpatient Medications Dextrose (Dextrose 50%) 25 - 50 ml IV UD PRN; Protocol PRN Reason: Hypoglycemia Protocol Stop: 01/29/20 20:59 Glucagon (Glucagen) 1 mg IM UD PRN; Protocol PRN Reason: Hypoglycemia Protocol Stop: 01/29/20 20:59 Glucose (Glucose 40%) 15 - 30 gm PO UD PRN; Protocol PRN Reason: Hypoglycemia Protocol Stop: 01/29/20 20:59 Glucose (Dex4 Glucose) 4 - 8 tabs PO UD PRN; Protocol PRN Reason: Hypoglycemia Protocol Stop: 01/29/20 20:59 Insulin Aspart (Novolog Flexpen) 0 units SC ACHS [facility] Stop: 01/29/20 20:59 Last Admin: 12/30/19 21:42 Dose: 7 units Documented by: Insulin Aspart (Novolog Flexpen) 0 units SC 0200 ONE Stop: 12/31/19 02:01 Insulin Glargine (Lantus) 160 units SC HS [facility] Stop: 01/29/20 20:59 Last Admin: 12/30/19 21:41 Dose: 160 units Documented by: Miscellaneous (Carbohydrates For Hypoglycemia) 15 - 30 gm PO UD PRN PRN Reason: Hypoglycemia Treatment Stop: 01/29/20 20:59 Miscellaneous Information (Consult Glycemic Management Pharmacy) 1 ea N/A UD PRN PRN Reason: Consult Stop: 01/29/20 20:38 Ondansetron HCl (Zofran) 4 mg IV Q6H PRN PRN Reason: Nausea Stop: 01/29/20 20:06 Polyethylene Glycol (Miralax Powder Packet) 17 gm PO BID [facility] Stop: 01/29/20 20:59 Last Admin: 12/30/19 21:46 Dose: Not Given Documented by: Code Status & VTE Plan Code Status Full Supervising Physician Co-Signing Physician Notes Attending addendum: I have physically seen this patient, have supervised the medical residents activities, and agree with the H&P unless as otherwise noted. Assessment and Plan: Acute respiratory failure with hypoxia/pneumonia/COPD exacerbation- Patient accepted in transfer from [facility]. Admit to monitored bed. Vancomycin IV per pharmacokinetic monitoring. Cefepime 1 g IV every 12 hours. Azithromycin 500 mg IV daily. Duonebs every 4 hours while awake and every 2 hours when necessary. Pulmicort Respules 0.5 mg inhaled twice daily. Solu-Medrol IV Guaifenesin extended release 600 mg p.o. twice daily. Fexofenadine 180 mg p.o. daily. Singular 10 mg p.o. daily CAD/hypertension- Continue amlodipine, benazepril, furosemide and metoprolol tartrate. Remainder of orders and notations as noted Resident Activity Tracking Resident Involvement: Resident Care Provided Care Provided: Adult Hospital Medicine
[2019-12-30] MEDS ORDERED: ALBUTEROL HFA 8 GM INHALER INH PRN (22:55)
[2019-12-30] MEDS ORDERED: ALBUT/IPRATROP 3MG/0.5MG NEB 3 ML VIAL INH PRN (22:55)
[2019-12-30] MEDS ORDERED: VANCOMYCIN CONSULT ACTIVE PRN (23:01)
[2019-12-30] MEDS ORDERED: CEFEPIME CONSULT ACTIVE PRN (23:01)
[2019-12-30] MEDS ORDERED: ACETAMINOPHEN 500 MG TAB PO PRN (23:02)
[2019-12-30] MEDS ORDERED: IBUPROFEN 600 MG TAB PO PRN (23:02)
[2019-12-30] MEDS ORDERED: ALBUT/IPRATROP 3MG/0.5MG NEB 3 ML VIAL INH SCH (23:15)
[2019-12-30] MEDS ORDERED: ENOXAPARIN 100 MG/1ML SYR SQ SCH (23:15)
[2019-12-30 23:46] LABS: Basophils # (auto) 0.04 K/uL (0-0.2); Basophils % (auto) 0.4 %; Eosinophils # (auto) 0.11 K/uL (0-0.5); Eosinophils % (auto) 1.2 %; Hematocrit (blood only) 46.1 % (37-47); Immature Granulocytes # (auto) 0.02 K/uL (0.00-0.02); Immature Granulocytes % (auto) 0.2 %; Lymphocytes # (auto) 1.66 K/uL (1.2-3.4); Lymphocytes % (auto) 17.7 %; Mean Corpuscular Hemoglobin 30.1 pg (25-34); Mean Corpuscular Hgb Conc 34.7 g/dL (32-36); Mean Corpuscular Volume 86.8 fL (80-100); Mean Platelet Volume 10.6 fL (7.4-10.4); Monocytes # (auto) 0.68 K/uL (0.11-0.59); Monocytes % (auto) 7.2 %; Neutrophils # (auto) 6.88 K/uL (1.4-6.5); Neutrophils % (auto) 73.3 %; Platelet Count 142 K/uL (130-400); RDW Standard Deviation 47.3 fL (36.4-46.3); Red Blood Count 5.31 M/uL (4.2-5.4); White Blood Count 9.39 K/uL (4.8-10.8)
[2019-12-30 23:58] LABS: INR 2.4 (0.9-1.1); Prothrombin Time 23.1 Seconds (9.0-12.0)
[2019-12-31 00:02] LABS: D Dimer 800 ug/L FEU (0-500)
[2019-12-31 00:08] LABS: Albumin Level 2.9 gm/dl (3.4-5.0); BUN Creatinine Ratio 15.1 (10-20); Calcium 8.6 mg/dl (8.5-10.1); Creatinine Clr Calc Pharmacy 104.7 ml/min; Est GFR (African American) 116.9; Est GFR (Non-African American) 100.9; Potassium 2.6 mmol/L (3.5-5.1)
[2019-12-31 00:11] LABS: Albumin Globulin Ratio 0.6 (0.9-2); Bilirubin,Total 0.6 mg/dl (0.2-1); Globulin 4.9 gm/dl (2.5-4.0); Total Protein 7.8 gm/dl (6.4-8.2)
[2019-12-31] MEDS: METOPROLOL TARTRATE 100 MG TAB PO SCH ×3 (00:39→20:08)
[2019-12-31] MEDS: DULOXETINE HCL 60 MG CAP PO SCH ×3 (00:43→20:08)
[2019-12-31] MEDS: PANTOprazole 40 MG TAB PO SCH ×3 (00:43→20:09)
[2019-12-31] MEDS: OXYBUTYNIN CHLORIDE XL 5 MG TABCR PO SCH ×3 (00:43→20:10)
[2019-12-31] MEDS: GABAPENTIN 600 MG TAB PO SCH ×4 (00:44→20:07)
[2019-12-31] MEDS: POTASSIUM CHLORIDE 20 MEQ TABCR PO SCH ×7 (01:42→20:49)
[2019-12-31] MEDS: CEFEPIME 2,000 MG in SYRINGE 7.5 ML IV SCH ×3 (01:42→16:10)
[2019-12-31] MEDS ORDERED: OPTIRAY 320 125ml IV PRN (01:44)
[2019-12-31] MEDS: ALBUT/IPRATROP 3MG/0.5MG NEB 3 ML VIAL INH SCH ×4 (01:55→19:21)
[2019-12-31] MEDS ORDERED: VANCOMYCIN HCL 1,250 MG in SODIUM CHLORIDE 0.9% 250 ML IV SCH (02:00)
[2019-12-31] MEDS ORDERED: INSULIN ASPART 100 UNITS/ML 3 ML PEN SC ONE (02:00)
[2019-12-31] MEDS: BUDESONIDE 0.5 MG/2 ML VIAL (PULMICORT) NEB SCH ×2 (07:06→19:21)
--- NOTE | 2019-12-31 07:12 | CT Scan Report ---
CT ANGIOGRAPHY OF THE CHEST, PULMONARY EMBOLUS PROTOCOL CLINICAL HISTORY: Shortness of breath. Congestive heart failure. Evaluate for pulmonary embolus. COMPARISON STUDY: Chest radiograph December 30, 2019. TECHNIQUE: Following IV administration of 92 mL of Optiray-320, helical axial images of the chest wer e obtained utilizing the pulmonary embolus protocol. Maximal intensity projections and sagittal and coronal reformats were viewed on an independent 3D workstation. IV contrast was administered without complication. Automated exposure control was utilized for the study. A dose lowering technique was utilized adhering to the principles of ALARA. CT DOSE: 872.35 mGy.cm FINDINGS: No pulmonary emboli are identified. There is no pericardial effusion. No thoracic aortic d issection is noted. Enlarged mediastinal and bilateral hilar lymph nodes are noted. Index subcarinal lymph node measures 2.2 cm in short axis diameter. Right paratracheal lymph node measures 1.7 cm. Lef t hilar node measures 1.4 cm. No pneumothorax is noted. There is trace right pleural fluid. Extensive multifocal groundglass opacities throughout the lungs with interlobular septal thickening suggestive of a crazy paving pattern is noted. There is no cavitation. Central airways are patent. No suspiciou s osseous lesions within the bony thorax are noted. The liver is cirrhotic. Mild splenomegaly is note d. IMPRESSION: 1. No pulmonary emboli identified. 2. Extensive multifocal groundglass opacities throughout the lungs. These are nonspecific and differe ntial considerations include an infectious process, pulmonary edema, alveolar proteinosis and alveola r sarcoidosis (given mediastinal and bilateral hilar lymphadenopathy). A follow-up chest CT in 2 samuel hs to reassess thoracic lymphadenopathy is recommended. 3. Cirrhosis. Mild splenomegaly. ACT 112: Negative or not required by law. Electronically signed by: Elvis Cary M.D. 12/31/2019 7:11 AM
[2019-12-31 07:19] LABS: Basophils # (auto) 0.04 K/uL (0-0.2); Basophils % (auto) 0.4 %; Eosinophils # (auto) 0.12 K/uL (0-0.5); Eosinophils % (auto) 1.2 %; Hematocrit (blood only) 46.1 % (37-47); Hemoglobin 16.1 g/dL (12.0-16.0); Immature Granulocytes # (auto) 0.03 K/uL (0.00-0.02); Immature Granulocytes % (auto) 0.3 %; Lymphocytes # (auto) 2.36 K/uL (1.2-3.4); Lymphocytes % (auto) 23.9 %; Mean Corpuscular Hemoglobin 30.3 pg (25-34); Mean Corpuscular Hgb Conc 34.9 g/dL (32-36); Mean Corpuscular Volume 86.8 fL (80-100); Mean Platelet Volume 11.4 fL (7.4-10.4); Monocytes # (auto) 0.68 K/uL (0.11-0.59); Monocytes % (auto) 6.9 %; Neutrophils # (auto) 6.65 K/uL (1.4-6.5); Neutrophils % (auto) 67.3 %; Platelet Count 160 K/uL (130-400); RDW Standard Deviation 47.7 fL (36.4-46.3); Red Blood Count 5.31 M/uL (4.2-5.4); White Blood Count 9.88 K/uL (4.8-10.8)
[2019-12-31 07:28] LABS: INR 2.9 (0.9-1.1); Prothrombin Time 27.3 Seconds (9.0-12.0)
[2019-12-31] MEDS: FEXOFENADINE HCL 180 MG TAB PO SCH (07:48)
[2019-12-31] MEDS: ROSUVASTATIN CALCIUM 20 MG TAB PO SCH (07:48)
[2019-12-31] MEDS: FLUTICASONE/VILANTEROL 200/25MCG 14 PUFFS/INHALER INH SCH (07:49)
[2019-12-31] MEDS: ENALAPRIL MALEATE 10 MG TAB PO SCH (07:50)
[2019-12-31 07:52] LABS: BUN Creatinine Ratio 15.4 (10-20); Calcium 8.6 mg/dl (8.5-10.1); Creatinine Clr Calc Pharmacy 121.4 ml/min; Est GFR (African American) 122.7; Est GFR (Non-African American) 105.8; Potassium 3.1 mmol/L (3.5-5.1)
[2019-12-31] MEDS: AMLODIPINE BESYLATE 5 MG TAB PO SCH (07:54)
[2019-12-31] MEDS: POLYETHYLENE (MIRALAX) 17 GM PACK PO SCH ×2 (07:54→20:06)
[2019-12-31] MEDS: INSULIN ASPART 100 UNITS/ML 3 ML PEN SC SCH ×4 (07:56→20:47)
[2019-12-31] MEDS ORDERED: FUROSEMIDE 20 MG in SYRINGE 0 ML IV ONE ×2 (08:45→13:30)
[2019-12-31] MEDS ORDERED: AZITHROMYCIN 500 MG in DEXTROSE 5% 250 ML IV SCH (09:00)
[2019-12-31] MEDS ORDERED: methylPREDNISolone 60 MG in SYRINGE 0 ML IV SCH (09:00)
--- NOTE | 2019-12-31 09:27 | Pharmacy Report ---
Glycemic Control Consultation - Date of Service December 31, 2019 - Scope Scope: Glycemic Pharmacist consulted by Dr Alisa Shaffer on 12/30 for glycemic control and to write orders per [facility] inpatient glycemic control protocol - Objective Weight: 96.8 kg Accuchecks BSG (last 24hrs): 12/30/19 12/30/19 12/31/19 19:56 23:35 01:46 Glucose 227 H POC Glucose 155 H 159 H 12/31/19 12/31/19 06:36 07:40 Glucose 73 POC Glucose 86 Laboratory Data (last 24hrs): 12/30/19 12/31/19 23:35 06:36 Potassium 2.6 L 3.1 L D Carbon Dioxide 28 29 Anion Gap 6.0 5.0 Creatinine 0.66 0.57 L Est Cr Clr Drug Dosing 104.7 121.4 - Recent Pertinent Medications Outpatient Anti-diabetic Regimen: * Toujeo 210 units qHS * Novolog per sliding scale (typically 20 units but only if she remembers to check her BSGs) * A1c = 13.4 % 08/10/19 The patient is currently receiving: * Basal insulin: Lantus 160 units every 24 hours * Correctional Insulin: Novolog Correction per scale ACHS Goal Range: Low 110 mg/dL - High 150 mg/dL Correction Factor: 15 mg/dL/unit * Prandial insulin: Per carb ratio of 1 unit per 6 grams CHO consumed Risk Factors for Insulin Resistance: * Steroids: Solu-medrol 60 mg IV daily - starting this AM -> now switched to prednisone 60 mg qAM from tomorrow * Infection: pneumonia * Diet: T2DM - Assessment & Plan Assessment & Plan: ASSESSMENT: * 54 y/o F with PMH significant for COPD, hyperlipidemia, ventral hernia, bilateral BKA using prosthesis, HTN, chronic pain syndrome, son aspiration, urinary incontinence, hypothyroidism, GERD, factor V Leiden, poorly controlled diabetes type 2, depression, asthma, aortic valve stenosis and allergic rhinitis. * History of poorly controlled T2DM, with most recent A1c 13.4% * Upon interview, she reports rarely checking her BSGs unless she feels like she's high and will then give herself 20 units of Novolog in addition to her Toujeo. * She received 145 units of Lantus on 12/29 PM and then 160 units last evening. AM fasting was on the low side, as low as 73 mg/dL, but then steroids were initiated so BSGs have been running high. * Anticipate insulin requirements to increase during the day but then taper off overnight with once daily steroids. Steroid dosing for tomorrow will only be slightly less than today. PLAN FOR INPATIENT GLYCEMIC CONTROL: * Basal insulin - reduce by ~15% and split BID to allow for flexible dosing * Lantus 70 units SQ BID * Bolus insulin - tighten CF/CR with meals, loosen at HS * NovoLog per scale ACHS, add overnight check in case basal dosing reduced too much * Goal Range: Low 110 mg/dL - High 140 mg/dL * Correction Factor: 7 mg/dL/unit AC, 15 mg/dL/unit at HS * Nutritional / Prandial insulin per carb ratio of 1 unit per 2 grams CHO consumed AC, 1 unit per 6 gm CHO HS * Please note that the plan above was derived based on current level of insulin resistance and hospital stress. These recommendations are appropriate for inpatient admission only. Plan of care upon discharge will need to be reassessed to avoid potential outpatient hypo/hyperglycemia. Thank you.
[2019-12-31] MEDS: INSULIN GLARGINE 100 UNIT/ML VIAL SC SCH ×2 (12:19→20:47)
--- NOTE | 2019-12-31 13:29 | Hospitalist Progress Note ---
Date of Service December 31, 2019 Assessment & Plan (1) Acute diastolic CHF (congestive heart failure): CT chest upon admission to [facility] with diffuse b/l infiltrates. Although she had had fever pre-admission to [facility] and some of this could be pneumonia I believe a good portion of her respiratory failure is pulmonary edema/CHF. Give lasix 20mg IV x 2 doses today and assess response. Just had stress echo late 2018 -- EF was preserved then. Suspect acute diastolic CHF may have been due to IV fluids (received such at [facility]), steroids (causes fluid retention), dietary indiscretion, etc. (2) Acute hypoxemic respiratory failure: Likely combination of acute diastolic CHF, ?pneumonia, and COPD exacerbation. Treat all components. Wean O2 as tolerated. (3) COPD exacerbation: Improved. Stop IV steroids. Transition to PO prednisone in am tomorrow. Nebs, supportive care. (4) Pneumonia: question/suspected. see above. MRSA swab neg - stop IV vanco. change IV zithromax to PO. reasonable to cont cefepime for now. (5) Ventral hernia: no issues at this time (6) Pain syndrome, chronic: cont gabapentin (7) Hypothyroidism: TSH 08/2019 wnl but not on replacement will check with patient about this diagnosis (8) Hyperlipidemia: (9) Factor V Leiden mutation: on chronic warfarin daily INR (10) Diabetes mellitus type 2, uncontrolled: 2nd steroids pharmacy has been consulted for glycemic management - appreciate their assistance (11) Depression: cont home meds (12) Aortic valve stenosis, mild: noted (13) Morbid obesity with BMI of 40.0-44.9, adult: BMI ~40 (14) Status post below-knee amputation of both lower extremities: (15) Hypokalemia: 2nd diuresis replace repeat level am (16) Hypomagnesemia: 2nd to diuresis replace repeat level am (17) DVT prophylaxis: warfarin PT, OT consults appreciated cont both therapies Admission and Anticipated Discharge Date Admission Date: December 30, 2019 Subjective patient sitting in chair by bedside during my visit. she was resting comfortably. states that yesterday AM she was "in rough shape" but by the time she left [facility] she was feeling some better. she recalls getting IV lasix at [place] and put out a lot of urine with this. yang catheter was placed at [place] yesterday morning. she is typically NOT on oxygen at home. uses lasix on PRN basis at home only. appetite is fair/good. she does recall having fever before admission to [facility]. tele overnight wnl. Review of Systems Constitutional: no fever, no chills and no anorexia Respiratory: + cough and + dyspnea on exertion; no wheezing Cardiovascular: no chest pain Gastrointestinal: no abdominal pain and no nausea Physical Exam Constitutional: + obese; no acute distress ENMT: external ear and nose normal, oropharynx normal Respiratory: no respiratory distress Auscultation: + crackles (bases); no wheezes Cardiovascular: Rate/Rhythm: regular rate and regular rhythm Heart Sounds: normal S1 and normal S2; no murmur Vessels: + JVD Gastrointestinal (Abdomen): normal bowel sounds, soft, nontender, no hepatosplenomegaly Percussion/Palpation: + hernia (midline - ventral - reducible ) Musculoskeletal: b/l BKA Psychiatric: A+Ox3, euthymic affect Results & Data ([facility]) Vital Signs (Past 12 Hours) Vital Signs Temp Pulse Pulse Pulse Resp BP Pulse Ox 12/31/19 13:24 36.8 C 75 18 130/74 95 12/31/19 13:19 80 16 93 12/31/19 07:43 36.5 C 72 20 129/75 93 12/31/19 07:06 71 16 93 12/31/19 05:11 73 22 94 12/31/19 04:19 36.5 C 85 19 160/76 H 94 12/31/19 03:42 99 H 27 H 94 12/31/19 01:57 84 26 H 94 12/31/19 01:56 84 24 94 Laboratory Results Laboratory Results - last 24 hr 12/31/19 12/31/19 12/31/19 06:36 06:36 06:36 WBC 9.88 RBC 5.31 Hgb 16.1 H Hct 46.1 MCV 86.8 MCH 30.3 MCHC 34.9 RDW Std Deviation 47.7 H RDW Coeff of Dajuan 15.0 H Plt Count 160 MPV 11.4 H Immature Gran % (Auto) 0.3 Neut % (Auto) 67.3 Lymph % (Auto) 23.9 [place] % (Auto) 6.9 Eos % (Auto) 1.2 Baso % (Auto) 0.4 Immature Gran # (Auto) 0.03 H Neut # (Auto) 6.65 H Lymph # (Auto) 2.36 [place] # (Auto) 0.68 H Eos # (Auto) 0.12 Baso # (Auto) 0.04 PT 27.3 H INR 2.9 H Sodium 137 Potassium 3.1 L D Chloride 103 Carbon Dioxide 29 Anion Gap 5.0 BUN 9 Creatinine 0.57 L Est Cr Clr Drug Dosing 121.4 Est GFR ( Amer) 122.7 Est GFR (Non-Af Amer) 105.8 BUN/Creatinine Ratio 15.4 Glucose 73 POC Glucose Calcium 8.6 Magnesium Nasal Screen MRSA (PCR) 12/31/19 12/31/19 12/31/19 06:36 07:40 09:04 WBC RBC Hgb Hct MCV MCH MCHC RDW Std Deviation RDW Coeff of Dajuan Plt Count MPV Immature Gran % (Auto) Neut % (Auto) Lymph % (Auto) [place] % (Auto) Eos % (Auto) Baso % (Auto) Immature Gran # (Auto) Neut # (Auto) Lymph # (Auto) [place] # (Auto) Eos # (Auto) Baso # (Auto) PT INR Sodium Potassium Chloride Carbon Dioxide Anion Gap BUN Creatinine Est Cr Clr Drug Dosing Est GFR ( Amer) Est GFR (Non-Af Amer) BUN/Creatinine Ratio Glucose POC Glucose 86 Calcium Magnesium 1.9 Nasal Screen MRSA (PCR) Negative 12/31/19 12/31/19 12/31/19 11:24 16:22 20:19 WBC RBC Hgb Hct MCV MCH MCHC RDW Std Deviation RDW Coeff of Dajuan Plt Count MPV Immature Gran % (Auto) Neut % (Auto) Lymph % (Auto) [place] % (Auto) Eos % (Auto) Baso % (Auto) Immature Gran # (Auto) Neut # (Auto) Lymph # (Auto) [place] # (Auto) Eos # (Auto) Baso # (Auto) PT INR Sodium Potassium Chloride Carbon Dioxide Anion Gap BUN Creatinine Est Cr Clr Drug Dosing Est GFR ( Amer) Est GFR (Non-Af Amer) BUN/Creatinine Ratio Glucose POC Glucose 258 H 318 H* 250 H Calcium Magnesium Nasal Screen MRSA (PCR) 01/01/20 01:24 WBC RBC Hgb Hct MCV MCH MCHC RDW Std Deviation RDW Coeff of Dajuan Plt Count MPV Immature Gran % (Auto) Neut % (Auto) Lymph % (Auto) [place] % (Auto) Eos % (Auto) Baso % (Auto) Immature Gran # (Auto) Neut # (Auto) Lymph # (Auto) [place] # (Auto) Eos # (Auto) Baso # (Auto) PT INR Sodium Potassium Chloride Carbon Dioxide Anion Gap BUN Creatinine Est Cr Clr Drug Dosing Est GFR ( Amer) Est GFR (Non-Af Amer) BUN/Creatinine Ratio Glucose POC Glucose 182 H Calcium Magnesium Nasal Screen MRSA (PCR) PG Care Time/CCT Total # of Minutes Spent Total Time Spent with Patient: Total time spent is greater than 50% in coordination of care (as documented) at patient's floor/unit and/or counseling patient: Coding Level of Care Code 52983 Subseq Hosp Care Lvl 3 Diagnoses Acute diastolic CHF (congestive heart failure) I50.31 Acute hypoxemic respiratory failure J96.01 COPD exacerbation J44.1 Pneumonia J18.9 Ventral hernia K43.9 Pain syndrome, chronic G89.4 Hypothyroidism E03.9 Hyperlipidemia E78.5 Factor V Leiden mutation D68.51 Diabetes mellitus type 2, uncontrolled E11.65 Depression F32.9 Aortic valve stenosis, mild I35.0 Morbid obesity with BMI of 40.0-44.9, adult E66.01; Z68.41 Status post below-knee amputation of both lower extremities Z89.512; Z89.511 Hypokalemia E87.6 Hypomagnesemia E83.42 DVT prophylaxis Z29.9
[2019-12-31] MEDS: AZITHROMYCIN 250 MG TAB PO SCH (14:09)
[2019-12-31] MEDS: WARFARIN SOD 4 MG TAB PO SCH (15:12)
[2019-12-31] MEDS: DOXEPIN HCL 50 MG CAPSULE PO SCH (20:08)
[2019-12-31] MEDS: MONTELUKAST SODIUM 10 MG TABLET PO SCH (20:09)
[2020-01-01] MEDS: ALBUT/IPRATROP 3MG/0.5MG NEB 3 ML VIAL INH SCH ×4 (01:08→19:36)
[2020-01-01] MEDS: CEFEPIME 2,000 MG in SYRINGE 7.5 ML IV SCH ×3 (01:23→18:41)
[2020-01-01] MEDS ORDERED: INSULIN ASPART 100 UNITS/ML 3 ML PEN SC ONE (02:00)
--- NOTE | 2020-01-01 02:48 | Billing Data ---
Date of Service January 01, 2020 Coding Level of Care Code 60866 Initial Inpt Care Lvl 3
[2020-01-01 05:32] LABS: Prothrombin Time 45.6 Seconds (9.0-12.0)
[2020-01-01 05:47] LABS: BUN Creatinine Ratio 27.9 (10-20); Calcium 8.5 mg/dl (8.5-10.1); Creatinine Clr Calc Pharmacy 108.2 ml/min; Est GFR (African American) 118.1; Est GFR (Non-African American) 101.9; Potassium 3.6 mmol/L (3.5-5.1)
[2020-01-01] MEDS ORDERED: Nursing to Pharmacy Communication ONE (05:57)
[2020-01-01] MEDS: BUDESONIDE 0.5 MG/2 ML VIAL (PULMICORT) NEB SCH ×2 (07:05→19:36)
[2020-01-01] MEDS: INSULIN ASPART 100 UNITS/ML 3 ML PEN SC SCH ×5 (07:25→21:14)
[2020-01-01] MEDS ORDERED: FUROSEMIDE 40 MG in SYRINGE 0 ML IV ONE (08:15)
[2020-01-01] MEDS: METOPROLOL TARTRATE 100 MG TAB PO SCH ×2 (08:42→21:11)
[2020-01-01] MEDS: POTASSIUM CHLORIDE 20 MEQ TABCR PO SCH ×3 (08:42→21:11)
[2020-01-01] MEDS: AMLODIPINE BESYLATE 5 MG TAB PO SCH (08:42)
[2020-01-01] MEDS: FEXOFENADINE HCL 180 MG TAB PO SCH (08:42)
[2020-01-01] MEDS: DULOXETINE HCL 60 MG CAP PO SCH ×2 (08:42→21:10)
[2020-01-01] MEDS: AZITHROMYCIN 250 MG TAB PO SCH (08:42)
[2020-01-01] MEDS: ROSUVASTATIN CALCIUM 20 MG TAB PO SCH (08:42)
[2020-01-01] MEDS: GABAPENTIN 600 MG TAB PO SCH ×3 (08:42→21:11)
[2020-01-01] MEDS: PANTOprazole 40 MG TAB PO SCH ×2 (08:42→21:12)
[2020-01-01] MEDS: ENALAPRIL MALEATE 10 MG TAB PO SCH (08:43)
[2020-01-01] MEDS: predniSONE 20 MG TAB PO SCH (08:43)
[2020-01-01] MEDS: OXYBUTYNIN CHLORIDE XL 5 MG TABCR PO SCH ×2 (08:43→21:10)
[2020-01-01] MEDS: FLUTICASONE/VILANTEROL 200/25MCG 14 PUFFS/INHALER INH SCH (08:45)
[2020-01-01] MEDS: POLYETHYLENE (MIRALAX) 17 GM PACK PO SCH ×2 (08:46→21:12)
[2020-01-01] MEDS ORDERED: NovoLIN-N (NPH) PER UNIT CHARGE SQ ONE (09:00)
--- NOTE | 2020-01-01 11:07 | Pharmacy Report ---
Pharmacy Glycemic Short Note 2 - Date of Service January 01, 2020 - Glycemic Short BSG Results (Last 24 hours): 12/31/19 12/31/19 12/31/19 11:24 16:22 20:19 Glucose POC Glucose 258 H 318 H* 250 H 01/01/20 01/01/20 01/01/20 01:24 05:04 07:34 Glucose 177 H POC Glucose 182 H 187 H Outpatient Anti-diabetic Regimen: * Toujeo 210 units SC qHS * Novolog per sliding scale (typically 20 units but only if she remembers to check her BSGs) * A1c = 13.4 % 08/10/19 The patient is currently receiving: * Basal insulin: Lantus 70 units SC BID * Bolus insulin: NovoLog per scale ACHS * Goal Range: Low 110 mg/dL - High 140 mg/dL * Correction Factor: 7 mg/dL/unit AC, 15 mg/dL/unit at HS * Nutritional / Prandial insulin per carb ratio of 1 unit per 2 grams CHO consumed AC, 1 unit per 6 gm CHO HS Risk Factors for Insulin Resistance: * Steroids: Solu-medrol 60 mg IV daily x1 on 12/31 then prednisone 60 mg po qAM starting 01/01 * Infection: pneumonia * Diet: T2DM ASSESSMENT: * 54 y/o F with T2DM and historical HbA1c indicating poor control admitted 12/30 for COPD exacerbation and CHF * PMH significant for COPD, hyperlipidemia, ventral hernia, bilateral BKA using prosthesis, HTN, chronic pain syndrome, aspiration, urinary incontinence, hypothyroidism, GERD, factor V Leiden, depression, asthma, aortic valve stenosis and allergic rhinitis * AM fasting BSG elevated to 187 mg/dL. But hesitant to push Lantus dose much higher 2nd AM fasting BSG of 86 mg/dL yesterday after 160 units of Lantus administered 12/30. Will therefore utilize both NPH qAM (for better prandial coverage while on qAM prednisone that will dissipate overnight) and continue Lantus HS (timing consistent with outpatient administration time) * Post-prandial BSG's with significant elevations yesterday. Addition of insulin NPH today may help, but patient may also require tightening of CHO ratio. Will determine need to change CHO ratio based on trend in BSG from breakfast to lunch. PLAN FOR INPATIENT GLYCEMIC CONTROL: * Basal insulin * Insulin NPH 70 units SC qAM x1 * Lantus 60-80 units SC qPM based on BSG (see MAR for details) * Bolus insulin - tighten CF/CR with meals, loosen at HS * NovoLog per scale ACHS, add overnight check in case basal dosing reduced too much * Goal Range: Low 110 mg/dL - High 140 mg/dL * Correction Factor: 7 mg/dL/unit AC, 15 mg/dL/unit at HS * Nutritional / Prandial insulin per carb ratio of 1 unit per 1.5 grams CHO consumed AC, 1 unit per 6 gm CHO HS
[2020-01-01] MEDS ORDERED: PHYTONADIONE 5 MG TAB PO STA (16:08)
[2020-01-01] MEDS ORDERED: PHYTONADIONE PED 1.25 MG, ORA-SWEET SYRUP 2.25 ML, ORA-PLUS SUSP VEHICLE 2.25 ML, BARCO... PO ONE (16:30)
[2020-01-01] MEDS ORDERED: FUROSEMIDE 20 MG in SYRINGE 0 ML IV ONE (17:00)
--- NOTE | 2020-01-01 20:05 | Hospitalist Progress Note ---
Date of Service January 01, 2020 Assessment & Plan (1) Acute diastolic CHF (congestive heart failure): improving. nice diuresis to date with stable Cr on labs. will give 40mg lasix x 1 this am along with lasix 20mg x 1 this afternoon. reassess volume status and BMP in am. (2) Supratherapeutic INR: INR 5. likely due to potentiation of coumadin by antibiotics. in light of gross hematuria will give 1.25mg of PO vitamin K. repeat INR am. leave yang. (3) Acute hypoxemic respiratory failure: Likely combination of acute diastolic CHF, ?pneumonia, and COPD exacerbation. IMPROVED. Wean O2 as tolerated. (4) COPD exacerbation: Improved. Cont prednisone taper. Nebs, supportive care. (5) Pneumonia: question/suspected. see above. MRSA swab neg - stopped IV vanco. finish zithromax course. stop cefepime - change to PO cefdinir 300mg BID starting tomorrow am. complete 7 days of IV/PO abx in total. (6) Ventral hernia: no issues at this time (7) Pain syndrome, chronic: cont gabapentin (8) Hypothyroidism: TSH 08/2019 wnl but not on replacement will check with patient about this diagnosis (9) Hyperlipidemia: (10) Factor V Leiden mutation: on chronic warfarin daily INR see above in "supratherapeutic INR" (11) Diabetes mellitus type 2, uncontrolled: 2nd steroids pharmacy has been consulted for glycemic management - appreciate their assistance (12) Depression: cont home meds (13) Aortic valve stenosis, mild: noted (14) Morbid obesity with BMI of 40.0-44.9, adult: BMI ~40 (15) Status post below-knee amputation of both lower extremities: (16) Hypokalemia: replaced and resolved cont K supplementation in face of diuresis BMP am (17) Hypomagnesemia: replaced and resolved (18) DVT prophylaxis: warfarin PT, OT consults appreciated cont both therapies can return home at d/c left message for daughter on her voicemail 01/01 coumadin management and high INR constitute high-risk medication coordination/management Admission and Anticipated Discharge Date Admission Date: December 30, 2019 Subjective feeling much better today. mild cough - brown sputum. no dyspnea or orthopnea. patient states "how do I get that thing?" (referring to BIPAP). she sleeps much better with it than usual. she says her tells her she does indeed snore. tele overnight wnl. nurses alerted me later in day that she developed gross hematuria. appetite improved. asks when she might go home. Review of Systems Constitutional: no fever, no chills, no fatigue and no anorexia Respiratory: + cough; no dyspnea and no hemoptysis Cardiovascular: no chest pain Gastrointestinal: no abdominal pain Physical Exam Constitutional: + obese; no acute distress ENMT: external ear and nose normal, oropharynx normal Respiratory: no respiratory distress Auscultation: + crackles (bases); no wheezes Cardiovascular: Rate/Rhythm: regular rate and regular rhythm Heart Sounds: normal S1 and normal S2; no murmur Vessels: + JVD (improved today ) Gastrointestinal (Abdomen): normal bowel sounds, soft, nontender, no hepatosplenomegaly Percussion/Palpation: + hernia (midline - ventral - reducible ) Musculoskeletal: b/l BKA Psychiatric: A+Ox3, euthymic affect Genitourinary: mild gross hematuria in yang bag Results & Data ([facility]) Vital Signs (Past 12 Hours) Vital Signs Temp Pulse Pulse Resp BP Pulse Ox 01/01/20 16:16 37.0 C 77 19 122/72 92 01/01/20 12:52 70 18 91 01/01/20 11:24 36.7 C 69 20 115/69 90 01/01/20 10:04 72 Laboratory Results Laboratory Results - last 24 hr 12/31/19 01/01/20 01/01/20 20:19 01:24 05:04 PT 45.6 H INR 5.0 H Sodium Potassium Chloride Carbon Dioxide Anion Gap BUN Creatinine Est Cr Clr Drug Dosing Est GFR ( Amer) Est GFR (Non-Af Amer) BUN/Creatinine Ratio Glucose POC Glucose 250 H 182 H Calcium Magnesium 01/01/20 01/01/20 01/01/20 05:04 07:34 11:09 PT INR Sodium 139 Potassium 3.6 D Chloride 105 Carbon Dioxide 29 Anion Gap 5.0 BUN 18 D Creatinine 0.64 Est Cr Clr Drug Dosing 108.2 Est GFR ( Amer) 118.1 Est GFR (Non-Af Amer) 101.9 BUN/Creatinine Ratio 27.9 H Glucose 177 H POC Glucose 187 H 269 H Calcium 8.5 Magnesium 2.0 01/01/20 16:19 PT INR Sodium Potassium Chloride Carbon Dioxide Anion Gap BUN Creatinine Est Cr Clr Drug Dosing Est GFR ( Amer) Est GFR (Non-Af Amer) BUN/Creatinine Ratio Glucose POC Glucose 160 H Calcium Magnesium PG Care Time/CCT Total # of Minutes Spent Total Time Spent with Patient: Total time spent is greater than 50% in coordination of care (as documented) at patient's floor/unit and/or counseling patient: Coding Level of Care Code 25442 Subseq Hosp Care Lvl 3 Diagnoses Acute diastolic CHF (congestive heart failure) I50.31 Supratherapeutic INR R79.1 Acute hypoxemic respiratory failure J96.01 COPD exacerbation J44.1 Pneumonia J18.9 Ventral hernia K43.9 Pain syndrome, chronic G89.4 Hypothyroidism E03.9 Hyperlipidemia E78.5 Factor V Leiden mutation D68.51 Diabetes mellitus type 2, uncontrolled E11.65 Depression F32.9 Aortic valve stenosis, mild I35.0 Morbid obesity with BMI of 40.0-44.9, adult E66.01; Z68.41 Status post below-knee amputation of both lower extremities Z89.512; Z89.511 Hypokalemia E87.6 Hypomagnesemia E83.42 DVT prophylaxis Z29.9
[2020-01-01] MEDS: MONTELUKAST SODIUM 10 MG TABLET PO SCH (21:11)
[2020-01-01] MEDS: DOXEPIN HCL 50 MG CAPSULE PO SCH (21:12)
[2020-01-01] MEDS: INSULIN GLARGINE 100 UNIT/ML VIAL SC SCH (21:13)
[2020-01-02] MEDS: ALBUT/IPRATROP 3MG/0.5MG NEB 3 ML VIAL INH SCH ×4 (01:17→19:19)
[2020-01-02 05:52] LABS: Hematocrit (blood only) 47.8 % (37-47); Mean Corpuscular Hemoglobin 29.7 pg (25-34); Mean Corpuscular Hgb Conc 33.5 g/dL (32-36); Mean Corpuscular Volume 88.8 fL (80-100); Mean Platelet Volume 10.4 fL (7.4-10.4); Platelet Count 153 K/uL (130-400); RDW Coefficient of Variation 14.8 % (11.5-14.5); RDW Standard Deviation 47.9 fL (36.4-46.3); Red Blood Count 5.38 M/uL (4.2-5.4); White Blood Count 9.35 K/uL (4.8-10.8)
[2020-01-02 06:11] LABS: INR 2.9 (0.9-1.1); Prothrombin Time 27.6 Seconds (9.0-12.0)
[2020-01-02 06:22] LABS: BUN Creatinine Ratio 36.1 (10-20); Creatinine Clr Calc Pharmacy 98.9 ml/min; Est GFR (African American) 115.7; Est GFR (Non-African American) 99.9; Potassium 3.2 mmol/L (3.5-5.1)
[2020-01-02 06:46] LABS: Estimated Average Glucose 321 mg/dl; Hemoglobin A1C 12.8 % (4.5-5.6)
[2020-01-02] MEDS: BUDESONIDE 0.5 MG/2 ML VIAL (PULMICORT) NEB SCH ×2 (07:31→19:19)
[2020-01-02] MEDS ORDERED: POTASSIUM CHLORIDE 20 MEQ TABCR PO STA (08:10)
[2020-01-02] MEDS ORDERED: FUROSEMIDE 20 MG in SYRINGE 0 ML IV ONE ×2 (08:30→17:00)
[2020-01-02] MEDS: INSULIN HUMAN NPH SC SCH (08:31)
[2020-01-02] MEDS: INSULIN ASPART 100 UNITS/ML 3 ML PEN SC SCH ×4 (08:31→20:20)
[2020-01-02] MEDS: CEFDINIR 300 MG CAP PO SCH ×2 (08:33→20:12)
[2020-01-02] MEDS: GABAPENTIN 600 MG TAB PO SCH ×3 (08:33→20:12)
[2020-01-02] MEDS: DULOXETINE HCL 60 MG CAP PO SCH ×2 (08:33→20:12)
[2020-01-02] MEDS: PANTOprazole 40 MG TAB PO SCH ×2 (08:33→20:12)
[2020-01-02] MEDS: OXYBUTYNIN CHLORIDE XL 5 MG TABCR PO SCH ×2 (08:34→20:11)
[2020-01-02] MEDS: POTASSIUM CHLORIDE 20 MEQ TABCR PO SCH ×3 (08:34→20:12)
[2020-01-02] MEDS: METOPROLOL TARTRATE 100 MG TAB PO SCH ×2 (08:34→20:12)
[2020-01-02] MEDS: ROSUVASTATIN CALCIUM 20 MG TAB PO SCH (08:35)
[2020-01-02] MEDS: ENALAPRIL MALEATE 10 MG TAB PO SCH (08:35)
[2020-01-02] MEDS: AMLODIPINE BESYLATE 5 MG TAB PO SCH (08:35)
[2020-01-02] MEDS: AZITHROMYCIN 250 MG TAB PO SCH (08:35)
[2020-01-02] MEDS: FEXOFENADINE HCL 180 MG TAB PO SCH (08:35)
[2020-01-02] MEDS: predniSONE 20 MG TAB PO SCH (08:35)
[2020-01-02] MEDS: FLUTICASONE/VILANTEROL 200/25MCG 14 PUFFS/INHALER INH SCH (08:36)
[2020-01-02] MEDS: POLYETHYLENE (MIRALAX) 17 GM PACK PO SCH ×2 (08:36→20:12)
[2020-01-02] MEDS: GUAIFENESIN/DEXTROM SYRUP 200MG/20MG 10ML UDC PO PRN ×2 (11:15→17:21)
--- NOTE | 2020-01-02 13:11 | Pharmacy Report ---
Pharmacy Glycemic Short Note 2 - Date of Service January 02, 2020 - Glycemic Short BSG Results (Last 24 hours): 01/01/20 01/01/20 01/02/20 16:19 20:12 05:26 Glucose 89 POC Glucose 160 H 154 H 01/02/20 01/02/20 07:21 11:22 Glucose POC Glucose 80 210 H Outpatient Anti-diabetic Regimen: * Toujeo 210 units SC qHS * Novolog per sliding scale (typically 20 units but only if she remembers to check her BSGs) * A1c = 13.4 % 08/10/19 The patient is currently receiving: * Basal insulin: Lantus 70 units SC qHS, NPH 70 units qAM * Bolus insulin: NovoLog per scale ACHS * Goal Range: Low 110 mg/dL - High 140 mg/dL * Correction Factor: 7 mg/dL/unit AC, 15 mg/dL/unit at HS * Nutritional / Prandial insulin per carb ratio of 1 unit per 1.5 grams CHO consumed AC, 1 unit per 6 gm CHO HS Risk Factors for Insulin Resistance: * Steroids: prednisone 60 mg po qAM * Infection: pneumonia * Diet: T2DM ASSESSMENT: * Patient is currently receiving an average of 230 units of insulin per day * 140 units of basal insulin * 88 units of prandial/correctional insulin * BSGs ranging 80-210 over the past 24hrs * Risk factors for insulin resistance are constant over the past 24hrs * Anticipating insulin regimen will need decreased for the next 24hrs d/t : * AM Fasting BSG = 80 therefore Basal insulin needs decreased. I have elected to decrease the AM NPH instead of the Lantus since fasting has dropped drastically and need to decrease basal dose this AM. In addition, Novolog parameters are already aggressive so high dose of NPH is probably not necessary. * Total daily dose = 230 therefore will need to evenly re-distribute regimen 50%:50% basal:prandial to prevent hypo/hyperglycemia * Of note, lunch BSG is elevated today; however, it was higher yesterday and then dropped down to 160 mg/dL prior to dinner because of the NPH 01/01 * 54 y/o F with T2DM and historical HbA1c indicating poor control admitted 12/30 for COPD exacerbation and CHF * PMH significant for COPD, hyperlipidemia, ventral hernia, bilateral BKA using prosthesis, HTN, chronic pain syndrome, aspiration, urinary incontinence, hypothyroidism, GERD, factor V Leiden, depression, asthma, aortic valve stenosis and allergic rhinitis * AM fasting BSG elevated to 187 mg/dL. But hesitant to push Lantus dose much higher 2nd AM fasting BSG of 86 mg/dL yesterday after 160 units of Lantus administered 12/30. Will therefore utilize both NPH qAM (for better prandial coverage while on qAM prednisone that will dissipate overnight) and continue Lantus HS (timing consistent with outpatient administration time) * Post-prandial BSG's with significant elevations yesterday. Addition of insulin NPH today may help, but patient may also require tightening of CHO ratio. Will determine need to change CHO ratio based on trend in BSG from breakfast to lunch. PLAN FOR INPATIENT GLYCEMIC CONTROL: * Basal insulin - decrease NPH * Insulin NPH 40 units qAM (to act as basal and help with once daily prednisone) * Lantus 60-80 units SC qPM based on BSG (see MAR for details) * Bolus insulin - no change * NovoLog per scale ACHS * Goal Range: Low 110 mg/dL - High 140 mg/dL * Correction Factor: 7 mg/dL/unit AC, 15 mg/dL/unit at HS * Nutritional / Prandial insulin per carb ratio of 1 unit per 1.5 grams CHO consumed AC, 1 unit per 6 gm CHO HS
[2020-01-02] MEDS: WARFARIN SOD 4 MG TAB PO SCH (16:56)
[2020-01-02] MEDS: MONTELUKAST SODIUM 10 MG TABLET PO SCH (20:12)
[2020-01-02] MEDS: INSULIN GLARGINE 100 UNIT/ML VIAL SC SCH (20:21)
[2020-01-02] MEDS: DOXEPIN HCL 50 MG CAPSULE PO SCH (21:35)
--- NOTE | 2020-01-02 22:00 | Hospitalist Progress Note ---
Date of Service January 02, 2020 Assessment & Plan (1) Acute diastolic CHF (congestive heart failure): improving. give another dose of lasix this afternoon then hold further doses. recheck BMP in am. approaching euvolemia. (2) Supratherapeutic INR: s/p small dose of vit K on 01/01 INR improved today to 2.9 gross hematuria improving HIGH risk of VTE given her factor V leiden mutation - would not reverse her INR completely because of mild hematuria recheck INR am (3) Acute hypoxemic respiratory failure: Likely combination of acute diastolic CHF, possible pneumonia, and COPD exacerbation. IMPROVED/nearly resolved. (4) COPD exacerbation: Improved/resolved. Cont prednisone taper. Taper to 40mg in the am tomorrow. Nebs, supportive care. Patient using BIPAP at night; h/o CO2 retention, snoring, etc Perform overnight oximetry study tonight. ABG in am. This may qualify her for BIPAP at home. (5) Pneumonia: question/suspected. see above. MRSA swab neg - stopped IV vanco. finish zithromax course. stop cefepime - change to PO cefdinir 300mg BID starting tomorrow am. day #5 of abx. complete 7 days of IV/PO abx in total. (6) Ventral hernia: no issues at this time (7) Pain syndrome, chronic: cont gabapentin (8) Hypothyroidism: TSH 08/2019 wnl but not on replacement will check with patient about this diagnosis (9) Hyperlipidemia: (10) Factor V Leiden mutation: on chronic warfarin daily INR see above in "supratherapeutic INR" (11) Diabetes mellitus type 2, uncontrolled: 2nd steroids pharmacy has been consulted for glycemic management - appreciate their assistance a1c is markedly elevated - history of noncompliance with diet, insulin, etc (12) Depression: cont home meds (13) Aortic valve stenosis, mild: noted (14) Morbid obesity with BMI of 40.0-44.9, adult: BMI now 38 following diuresis (15) Status post below-knee amputation of both lower extremities: (16) Hypokalemia: replaced and resolved cont K supplementation in face of diuresis BMP am (17) Hypomagnesemia: replaced and resolved (18) DVT prophylaxis: warfarin PT, OT consults appreciated cont both therapies can return home at d/c left message for daughter on her voicemail 01/01 coumadin management and high INR constitute high-risk medication c oordination/management home tomorrow? Admission and Anticipated Discharge Date Admission Date: December 30, 2019 Anticipated date of discharge: 01/03/20 Subjective patient feeling very well off O2 minimal cough good appetite put out 1500cc+ of urine with AM lasix today gross hematuria in yang bag starting to clear tele normal sleeping well with BIPAP and wonders "how she can get this" Review of Systems Constitutional: no fever and no chills Respiratory: + wheezing; no hemoptysis and no sputum production Cardiovascular: no chest pain Gastrointestinal: no abdominal pain, no bloating, no nausea, no vomiting, no constipation and no diarrhea/loose stools Physical Exam Constitutional: + obese; no acute distress ENMT: external ear and nose normal, oropharynx normal Respiratory: no respiratory distress Auscultation: + wheezes (mild end-exp ); no crackles Cardiovascular: Rate/Rhythm: regular rate and regular rhythm Heart Sounds: normal S1 and normal S2; no murmur Vessels: no JVD (resolved) Extremities: no edema (none in her thighs b/l) Gastrointestinal (Abdomen): normal bowel sounds, soft, nontender, no hepatosplenomegaly Percussion/Palpation: + hernia (midline - ventral - reduci ble ) Musculoskeletal: b/l BKA Psychiatric: A+Ox3, euthymic affect Genitourinary: yang bag - slight hematuria present Results & Data ([facility]) Vital Signs (Past 12 Hours) Vital Signs Temp Pulse Pulse Resp BP Pulse Ox 01/02/20 19:22 77 18 92 01/02/20 18:54 36.9 C 79 18 148/68 H 90 01/02/20 17:35 79 01/02/20 15:17 36.8 C 76 18 137/73 90 01/02/20 13:08 77 18 85 L 01/02/20 11:24 36.9 C 71 20 124/76 88 L Laboratory Results Laboratory Results - last 24 hr 01/02/20 01/02/20 01/02/20 05:26 05:26 05:26 WBC 9.35 RBC 5.38 Hgb 16.0 Hct 47.8 H MCV 88.8 MCH 29.7 MCHC 33.5 RDW Std Deviation 47.9 H RDW Coeff of Dajuan 14.8 H Plt Count 153 MPV 10.4 PT 27.6 H INR 2.9 H Sodium Potassium Chloride Carbon Dioxide Anion Gap BUN Creatinine Est Cr Clr Drug Dosing Est GFR ( Amer) Est GFR (Non-Af Amer) BUN/Creatinine Ratio Glucose POC Glucose Estimat Average Glucose 321 Hemoglobin A1c 12.8 H Calcium 01/02/20 01/02/20 01/02/20 05:26 07:21 11:22 WBC RBC Hgb Hct MCV MCH MCHC RDW Std Deviation RDW Coeff of Dajuan Plt Count MPV PT INR Sodium 141 Potassium 3.2 L Chloride 105 Carbon Dioxide 31 Anion Gap 6.0 BUN 25 H Creatinine 0.68 Est Cr Clr Drug Dosing 98.9 Est GFR ( Amer) 115.7 Est GFR (Non-Af Amer) 99.9 BUN/Creatinine Ratio 36.1 H Glucose 89 POC Glucose 80 210 H Estimat Average Glucose Hemoglobin A1c Calcium 9.0 01/02/20 01/02/20 16:02 20:15 WBC RBC Hgb Hct MCV MCH MCHC RDW Std Deviation RDW Coeff of Dajuan Plt Count MPV PT INR Sodium Potassium Chloride Carbon Dioxide Anion Gap BUN Creatinine Est Cr Clr Drug Dosing Est GFR ( Amer) Est GFR (Non-Af Amer) BUN/Creatinine Ratio Glucose POC Glucose 172 H 362 H* Estimat Average Glucose Hemoglobin A1c Calcium PG Care Time/CCT Total # of Minutes Spent Total Time Spent with Patient: Total time spent is greater than 50% in coordination of care (as documented) at patient's floor/unit and/or counseling patient: Coding Level of Care Code 05486 Subseq Hosp Care Lvl 3 Diagnoses Acute diastolic CHF (congestive heart failure) I50.31 Supratherapeutic INR R79.1 Acute hypoxemic respiratory failure J96.01 COPD exacerbation J44.1 Pneumonia J18.9 Ventral hernia K43.9 Pain syndrome, chronic G89.4 Hypothyroidism E03.9 Hyperlipidemia E78.5 Factor V Leiden mutation D68.51 Diabetes mellitus type 2, uncontrolled E11.65 Depression F32.9 Aortic valve stenosis, mild I35.0 Morbid obesity with BMI of 40.0-44.9, adult E66.01; Z68.41 Status post below-knee amputation of both lower extremities Z89.512; Z89.511 Hypokalemia E87.6 Hypomagnesemia E83.42 DVT prophylaxis Z29.9
[2020-01-03] MEDS: ALBUT/IPRATROP 3MG/0.5MG NEB 3 ML VIAL INH SCH ×3 (01:29→13:08)
[2020-01-03 07:21] LABS: Base Excess ABG 4.8 mEq/L (-9-1.8); HCO3 ABG 28 mmol/L (19-24); Oxygen Saturation ABG 94.3 % (90-95); PCO2 ABG 36 mmHg (35-46); PO2 ABG 64 mmHg (80-95)
[2020-01-03 07:26] LABS: INR 2.7 (0.9-1.1); Prothrombin Time 25.9 Seconds (9.0-12.0)
[2020-01-03] MEDS: BUDESONIDE 0.5 MG/2 ML VIAL (PULMICORT) NEB SCH (07:26)
[2020-01-03 07:33] LABS: Allen Test Pos (Pos)
[2020-01-03 07:58] LABS: BUN Creatinine Ratio 38.6 (10-20); Calcium 9.1 mg/dl (8.5-10.1); Creatinine Clr Calc Pharmacy 134.3 ml/min; Est GFR (African American) 128.1; Est GFR (Non-African American) 110.5; Magnesium 1.8 mg/dl (1.8-2.4)
[2020-01-03] MEDS: INSULIN ASPART 100 UNITS/ML 3 ML PEN SC SCH ×2 (08:53→11:59)
[2020-01-03] MEDS: GABAPENTIN 600 MG TAB PO SCH ×2 (08:54→15:26)
[2020-01-03] MEDS: AZITHROMYCIN 250 MG TAB PO SCH (08:54)
[2020-01-03] MEDS: OXYBUTYNIN CHLORIDE XL 5 MG TABCR PO SCH (08:54)
[2020-01-03] MEDS: PANTOprazole 40 MG TAB PO SCH (08:54)
[2020-01-03] MEDS: DULOXETINE HCL 60 MG CAP PO SCH (08:54)
[2020-01-03] MEDS: AMLODIPINE BESYLATE 5 MG TAB PO SCH (08:54)
[2020-01-03] MEDS: ROSUVASTATIN CALCIUM 20 MG TAB PO SCH (08:54)
[2020-01-03] MEDS: METOPROLOL TARTRATE 100 MG TAB PO SCH (08:54)
[2020-01-03] MEDS: POTASSIUM CHLORIDE 20 MEQ TABCR PO SCH ×2 (08:54→15:26)
[2020-01-03] MEDS: FEXOFENADINE HCL 180 MG TAB PO SCH (08:54)
[2020-01-03] MEDS: ENALAPRIL MALEATE 10 MG TAB PO SCH (08:54)
[2020-01-03] MEDS: CEFDINIR 300 MG CAP PO SCH (08:55)
[2020-01-03] MEDS: POLYETHYLENE (MIRALAX) 17 GM PACK PO SCH (08:55)
[2020-01-03] MEDS: FLUTICASONE/VILANTEROL 200/25MCG 14 PUFFS/INHALER INH SCH (08:55)
[2020-01-03] MEDS: INSULIN HUMAN NPH SC SCH (08:55)
[2020-01-03] MEDS ORDERED: predniSONE 20 MG TAB PO SCH (09:00)
--- NOTE | 2020-01-03 10:52 | Pharmacy Report ---
Pharmacy Glycemic Short Note 2 - Date of Service January 03, 2020 - Glycemic Short BSG Results (Last 24 hours): 01/02/20 01/02/20 01/02/20 11:22 16:02 20:15 Glucose POC Glucose 210 H 172 H 362 H* 01/03/20 01/03/20 07:02 07:37 Glucose 86 POC Glucose 92 Outpatient Anti-diabetic Regimen: * Toujeo 210 units SC qHS * Novolog per sliding scale (typically 20 units but only if she remembers to check her BSGs) * A1c = 13.4 % 08/10/19 ASSESSMENT: 01/02 * Patient is currently receiving an average of 252 units of insulin per day * 120 units of basal insulin * 132 units of prandial/correctional insulin * BSGs ranging 86-362 over the past 24hrs * Risk factors for insulin resistance are DECREASING over the past 24hrs * Steroid dosing tapering: prednisone 60 mg -> 40 mg * Although prednisone dose has been decreased, will NOT change insulin today since postprandial BSGs remained elevated yesterday. I will, however, adjust the PM dose of Lantus to a set dose to prevent AM hypoglycemia. * Patient is currently receiving an average of 230 units of insulin per day * 140 units of basal insulin * 88 units of prandial/correctional insulin * BSGs ranging 80-210 over the past 24hrs * Risk factors for insulin resistance are constant over the past 24hrs * Anticipating insulin regimen will need decreased for the next 24hrs d/t : * AM Fasting BSG = 80 therefore Basal insulin needs decreased. I have elected to decrease the AM NPH instead of the Lantus since fasting has dropped drastically and need to decrease basal dose this AM. In addition, Novolog parameters are already aggressive so high dose of NPH is probably not necessary. * Total daily dose = 230 therefore will need to evenly re-distribute regimen 50%:50% basal:prandial to prevent hypo/hyperglycemia * Of note, lunch BSG is elevated today; however, it was higher yesterday and then dropped down to 160 mg/dL prior to dinner because of the NPH 01/01 * 54 y/o F with T2DM and historical HbA1c indicating poor control admitted 12/30 for COPD exacerbation and CHF * PMH significant for COPD, hyperlipidemia, ventral hernia, bilateral BKA using prosthesis, HTN, chronic pain syndrome, aspiration, urinary incontinence, hypothyroidism, GERD, factor V Leiden, depression, asthma, aortic valve stenosis and allergic rhinitis * AM fasting BSG elevated to 187 mg/dL. But hesitant to push Lantus dose much higher 2nd AM fasting BSG of 86 mg/dL yesterday after 160 units of Lantus administered 12/30. Will therefore utilize both NPH qAM (for better prandial coverage while on qAM prednisone that will dissipate overnight) and continue Lantus HS (timing consistent with outpatient administration time) * Post-prandial BSG's with significant elevations yesterday. Addition of insulin NPH today may help, but patient may also require tightening of CHO ratio. Will determine need to change CHO ratio based on trend in BSG from breakfast to lunch. PLAN FOR INPATIENT GLYCEMIC CONTROL: * Basal insulin - change Lantus to set dose of 70 units * NPH 40 units qAM (to act as basal and help with once daily prednisone) * Lantus 70 units SC qPM * Bolus insulin - no change * NovoLog per scale ACHS * Goal Range: Low 110 mg/dL - High 140 mg/dL * Correction Factor: 7 mg/dL/unit AC, 15 mg/dL/unit at HS * Nutritional / Prandial insulin per carb ratio of 1 unit per 1.5 grams CHO consumed AC, 1 unit per 6 gm CHO HS Discharge Recommendations: * A1c 12.8% on 01/02/20 * Goal A1c < 7-8% based on age/comorbidities * Patient is non-compliant as an outpatient, rarely checking BSGs. She would likely benefit from a set dose with meals in addition to her sliding scale. Would recommend initially 20 units with each meal + sliding scale. I'm guessing that her basal dose covers some of her meals right now so do not want to be overly aggressive initially. Will await further details from CDE prior to making final recommendations.
[2020-01-03] MEDS: WARFARIN SOD 4 MG TAB PO SCH (15:26)
--- NOTE | 2020-01-03 16:35 | Discharge Summary ---
Date of Service January 03, 2020 Discharge Exam Constitutional + obese; no acute distress ENMT external ear and nose normal, oropharynx normal Respiratory no respiratory distress Auscultation: + wheezes (mild end-exp ); no crackles Cardiovascular Rate/Rhythm: regular rate and regular rhythm Heart Sounds: normal S1 and normal S2; no murmur Vessels: no JVD (resolved) Extremities: no edema (none in her thighs b/l) Gastrointestinal (Abdomen) normal bowel sounds, soft, nontender, no hepatosplenomegaly Percussion/Palpation: + hernia (midline - ventral - reducible ) Psychiatric A+Ox3, euthymic affect Discharge Data Allergies Allergy/AdvReac Type Severity Reaction Status Date / Time bupropion Allergy Intermediate hives Verified 08/10/19 11:05 adhesive Allergy Mild "all tapes Verified 08/10/19 11:05 except paper" -- skin irritation Penicillins AdvReac Unknown HIVES Verified 08/10/19 11:05 Ordered Studies 12/31/19 00:47 CT angio chest PE protocol Urgent Hospital Course (1) Acute diastolic CHF (congestive heart failure): improving. give another dose of lasix this afternoon then hold further doses. recheck BMP in am. approaching euvolemia. (2) Supratherapeutic INR: s/p small dose of vit K on 01/01 INR improved today to 2.9 gross hematuria improving HIGH risk of VTE given her factor V leiden mutation - would not reverse her INR completely because of mild hematuria recheck INR am (3) Acute hypoxemic respiratory failure: Likely combination of acute diastolic CHF, possible pneumonia, and COPD exacerbation. IMPROVED/nearly resolved. (4) COPD exacerbation: Improved/resolved. Cont prednisone taper. Taper to 40mg in the am tomorrow. Nebs, supportive care. Patient using BIPAP at night; h/o CO2 retention, snoring, etc Perform overnight oximetry study tonight. ABG in am. This may qualify her for BIPAP at home. (5) Pneumonia: question/suspected. see above. MRSA swab neg - stopped IV vanco. finish zithromax course. stop cefepime - change to PO cefdinir 300mg BID starting tomorrow am. day #5 of abx. complete 7 days of IV/PO abx in total. (6) Ventral hernia: no issues at this time (7) Pain syndrome, chronic: cont gabapentin (8) Hypothyroidism: TSH 08/2019 wnl but not on replacement will check with patient about this diagnosis (9) Hyperlipidemia: (10) Factor V Leiden mutation: on chronic warfarin daily INR see above in "supratherapeutic INR" (11) Diabetes mellitus type 2, uncontrolled: 2nd steroids pharmacy has been consulted for glycemic management - appreciate their assistance a1c is markedly elevated - history of noncompliance with diet, insulin, etc (12) Depression: cont home meds (13) Aortic valve stenosis, mild: noted (14) Morbid obesity with BMI of 40.0-44.9, adult: BMI now 38 following diuresis (15) Status post below-knee amputation of both lower extremities: (16) Hypokalemia: replaced and resolved cont K supplementation in face of diuresis BMP am (17) Hypomagnesemia: replaced and resolved (18) DVT prophylaxis: warfarin PT, OT consults appreciated cont both therapies can return home at d/c left message for daughter on her voicemail 01/01 coumadin management and high INR constitute high-risk medication coordination/management home tomorrow? Discharge Plan Discharge Items Patient Disposition: Home - Home Health Services Reason For Visit: COPD, ACUTE congestive heart failure, pneumonia Discharge Diagnosis: 1. COPD exacerbation - improved 2. congestive heart failure leading to water retention in the lungs - improved 3. possible pneumonia - improved Activity: Resume your previous activity Non-emergency contact: Primary Care Provider Call non-emergency contact if: you have any medication questions, your symptoms worsen and you have a fever Follow-up/Referrals: Justa Rosen, [Primary Care Provider] - (see Dr Rosen in 3-4 days ) Diet: Carb Consistent or DM2 and Heart Healthy Fluids: 1800ml (7 cups) Addtl Attending Provider Instructions: You were transferred from [facility] to [facility] due to worsening breathing. Your breathing issues were due to a combination of the issues listed above in "discharge diagnoses." You improved with IV diuretics, steroids, nebs, and antibiotics. Recommendations - 1. take 2 more days of cefdinir antibiotic; take your first dose tonight. 2. take a prednisone course starting TOMORROW on 01/04/2020. 3. use your albuterol nebs 4 times a day for the next 5 days or so for your breathing then switch to as needed. 4. use Nasal Cannula oxygen 3 liters while you sleep. 5. please speak to Dr Rosen about getting a sleep study to rule out sleep apnea. 6. take furosemide water pill 20mg every morning until you see Dr Rosen. Take a potassium supplement with it. 7. your INR (coumadin level) was 2.7 today. Please continue on your NORMAL COUMADIN schedule as previous. Please have your INR checked in 3 days to ensure it is stable. Additional instructions for congestive heart failure - Call 911 and go to the Emergency Room if: * You have tightness or pain in your chest that does not go away with rest or Nitroglycerin * You are very short of breath even with rest Call your doctor if any of the following symptoms or problems start or get worse: * Shortness of breath or difficulty breathing * Wake up at night short of breath * Chest pain * Cough * Swelling of your hands, fee, or legs * More fatigued or tired with your normal activity * Palpitations - sudden fast heart beats WEIGHT * Weigh yourself every morning after using the bathroom. * Use the same scale. * Wear the same amount of clothing. * Write your weight down on your chart. * Call your doctor if you gain more than 2-3 pounds in 1-2 days. MEDICATIONS * Use this discharge instruction sheet for instructions. * Take your medications at the time your doctor ordered. * Do not skip a dose of your medicines. * If you miss a dose of medicine, take as soon as possible, but DO NOT DOUBLE A DOSE. * Read your medicine information when you get home. * Know all of the side effects of your medicine. * Call your doctor's office if you have any side effects. * Be sure all of your doctors know what medicine and herbs you take (including cold, flu, and herbal medicine). * Pain Medicine: If you do not get relief from your pain, please call your doctor for help. Take the following with you to your follow-up doctor appointments: * Weight Chart * Medication List * List of questions Do not drink excessive alcohol, beer or wine. Pending Studies at Discharge: No Stand-Alone Forms: My [employer], Smoking Cessation Medications and DC Order Prescriptions: New (DME) Oxygen Home Liters Per Minute See Rx Instructions .ROUTE .MEDSUPPLY Qty: 1 RF: 0 cefdinir 300 mg Capsule 300 mg PO BID 2 Days Qty: 4 RF: 0 prednisone 10 mg tablet 10 mg PO DIRECTED Qty: 20 RF: 0 potassium chloride 10 mEq capsule, extended release 10 meq PO DAILY Qty: 30 RF: 0 Continued montelukast 10 mg tablet 10 mg PO DAILY Qty: 90 RF: 3 azelastine 137 mcg (0.1 %) aerosol,spray 2 sprays intranasal BID Qty: 1 RF: 0 clindamycin phosphate 1 % gel 1 appln topical DAILY PRNQty: 1 RF: 0 duloxetine 60 mg capsule,delayed release(DR/EC) 60 mg PO BID Qty: 60 RF: 0 hydroxyzine HCl 25 mg tablet 25 - 50 mg PO Q6H PRN (Reason: anxiety) Qty: 30 RF: 0 ipratropium-albuterol 0.5 mg-3 mg(2.5 mg base)/3 mL solution for nebulization 3 ml inhalation Q6H PRN (Reason: shortness of breath or wheezing) Qty: 1 RF: 0 linaclotide 145 mcg capsule 145 mcg PO .COMPLEX RF: 0 insulin aspart U-100 100 unit/mL (3 mL) insulin pen 100 units subcut .COMPLEX RF: 0 promethazine 25 mg tablet 25 mg PO Q4H PRN (Reason: nausea and vomiting) Qty: 30 RF: 0 rosuvastatin 20 mg tablet 20 mg PO DAILY Qty: 90 RF: 0 budesonide-formoterol 160-4.5 mcg/actuation HFA aerosol inhaler 2 puffs inhalation BID Qty: 1 RF: 0 warfarin 4 mg tablet 4 mg PO .COMPLEX RF: 0 warfarin 2 mg tablet 2 mg PO .COMPLEX RF: 0 Toujeo Max U-300 SoloStar 300 unit/mL (3 mL) insulin pen 200 units subcut DAILY Qty: 24 RF: 5 benazepril 40 mg tablet 40 mg PO DAILY Qty: 90 RF: 3 metoprolol tartrate 100 mg tablet 100 mg PO BID Qty: 60 RF: 5 pantoprazole 40 mg tablet,delayed release (DR/EC) 40 mg PO BID Qty: 180 RF: 1 amlodipine 10 mg tablet 10 mg PO DAILY Qty: 90 RF: 1 warfarin 3 mg tablet 3 mg PO .COMPLEX Qty: 90 RF: 1 doxepin 50 mg capsule 50 mg PO HS Qty: 30 RF: 3 gabapentin 600 mg tablet 600 mg PO TID Qty: 90 RF: 3 albuterol sulfate 90 mcg/actuation HFA aerosol inhaler 1 - 2 puffs inhalation Q4H PRN (Reason: shortness of breath or wheezing) Qty: 1 RF: 0 (DME) Accu-Chek Guide strip See Dose Instructions .ROUTE .MEDSUPPLY Qty: 10 RF: 0 (DME) lancets [Accu-Chek Fastclix Lancet Drum] misc See Dose Instructions .ROUTE .MEDSUPPLY Qty: 50 RF: 0 oxybutynin chloride 5 mg tablet extended release 24hr 5 mg PO BID Qty: 60 RF: 5 famotidine 40 mg tablet 40 mg PO HS Qty: 30 RF: 5 (DME) pen needle, diabetic [BD Ultra-Fine Mini Pen Needle] 31 gauge x 3/16" needle See Dose Instructions .ROUTE .MEDSUPPLY Qty: 30 RF: 0 Changed furosemide 20 mg tablet 20 mg PO QAM Qty: 30 RF: 2 Discharge Orders: Discharge Order (Routine); Ordered 01/03/20 Ordered By: Perry Preciado Admission Data Admit Date/Time: 12/30/19 18:53 Attending Provider: Perry Preciado Admit Provider: Perry Precidao Primary Care Provider: Justa Rosen Other Interventions: Discharge Summary Assessment (RN) Last Done: 01/03/20 14:25 Coding Diagnoses Acute diastolic CHF (congestive heart failure) I50.31 Supratherapeutic INR R79.1 Acute hypoxemic respiratory failure J96.01 COPD exacerbation J44.1 Pneumonia J18.9 Ventral hernia K43.9 Pain syndrome, chronic G89.4 Hypothyroidism E03.9 Hyperlipidemia E78.5 Factor V Leiden mutation D68.51 Diabetes mellitus type 2, uncontrolled E11.65 Depression F32.9 Aortic valve stenosis, mild I35.0 Morbid obesity with BMI of 40.0-44.9, adult E66.01; Z68.41 Status post below-knee amputation of both lower extremities Z89.512; Z89.511 Hypokalemia E87.6 Hypomagnesemia E83.42 DVT prophylaxis Z29.9
[2020-01-03] MEDS ORDERED: INSULIN GLARGINE 100 UNIT/ML VIAL SC SCH (21:00)
== END 2020-01-03 17:00 | disposition home health service (06) | DRG 193 ==
LOC: 2S 18:53